=== PATIENT | female | born 1950 | race Caucasian/White ===

== ENCOUNTER 2023-12-14 10:28 | Outpatient (CLI) | payer MEDICARE, SELFPAY ==
--- NOTE | ~2023-12-14 | US_ITS ---
EXAMINATION: US carotid duplex BI DATE: 12/14/2023 11:19 INDICATION: Carotid bruit TECHNIQUE: Grayscale, color Doppler, and pulsed Doppler images of the cervical carotid arteries were obtained. The degree of vessel stenosis is placed in one of the following categories: normal, <50%, 5 0-69%, >=70% but less than near-occlusion, near-occlusion, or total occlusion. Note that percent sten osis relative to normal distal artery lumen diameter is indirectly measured from velocity measurement s as described by Iglesia, et al. Radiology 2003; 229:340-346. Notes: Normal: Peak systolic velocity <125 centimeters/sec and no plaque <50%. Peak systolic velocity <125 ( EDV <40; ICA/CCA PSV ratio <2.0; used these factors only a tandem lesions or low cardiac output or co ntralateral disease) 50-69 %: PSV 125-230 (EDV 40-100; ratio 2-4) >= 70% but less than near occlusion: PSV greater than 230 (EDV > 100; ratio> 4.0) Near Occlusion: PSV that is variable; markedly narrowed lumen Occlusion: Absent flow on color/spectral Doppler and no lumen on mendoza scale. COMPARISON: None. FINDINGS: RIGHT: The right common carotid artery (CCA) peak systolic velocity (PSV) is 116 cm/s. The right internal ca rotid artery (ICA) PSV is 108 cm/s. The right ICA end-diastolic velocity (EDV) is 22 cm/s. The right ICA/CCA PSV ratio is 0.9. The external carotid artery (ECA) PSV is 100 cm/s. There is antegrade flow in the right vertebral artery. LEFT: The left CCA PSV is 79 cm/s. The left ICA PSV is 89 cm/s. The left ICA EDV is 21 cm/s. The left ICA/C CA PSV ratio is 1.2. The ECA PSV is 57 cm/s. There is antegrade flow in the left vertebral artery. IMPRESSION: 1. Less than 50% stenosis in the right internal carotid artery by sonographic criteria. 2. Less than 50% stenosis in the left internal carotid artery by sonographic criteria. Reviewed, dictated and finalized at location B. IMPRESSION: 1. Less than 50% stenosis in the right internal carotid artery by sonographic jeremie knight. 2. Less than 50% stenosis in the left internal carotid artery by sonographic evaristo freeman.
== END 2023-12-14 10:29 | disposition home or self-care (01) ==
PROVIDERS: Visit Provider Internal Medicine Cardiovascular Disease
DX: I65.23 Occlusion and stenosis of bilateral carotid arteries (principal); R09.89 Other specified symptoms and signs involving the circulatory and respiratory systems
CPT/HCPCS: 93880

== ENCOUNTER 2024-09-04 00:29 | Day surgery (SDC) | payer MEDICARE, SELFPAY ==
[2024-09-03 10:04] VITALS: BMI 36.6
[2024-09-04] VITALS (7 sets, daily range): BP systolic 144–217; BP diastolic 53–107; PULSE 60–74; RESP 14–20; TEMP 36.2; O2SAT 96–100; BMI 33.5
--- OUTSIDE RECORDS SUMMARY | 2024-09-04 00:31 | XMS_ITS | Encounter Summary ---
Author Organization [facility] Address [address] [address] Care Team Providers Care Strategy Consultant Name Role Phone Rebecca Johnson MD Primary Care Provider + [phone] Rebecca Johnson MD Unavailable [phone] Ramona Davis MA Unavailable Yun Arenas NP Primary Care Provider [phone] Johnny Michelle MD Unavailable Jaylen Knott MD Unavailable [phone] Dori Davis MD Unavailable [phone] Jamison Sheldon MD Unavailable [phone] Encounter Details Date Type Department Care Team (Late st Contact Info) Description 08/02/2016 Orders Only [facility] Provider, MD Catrachita [address] [place] [id number] Social History Tobacco Use Types Packs/Day Years Used Date Smoking Tobacco: Never Alcohol Use Standard Drinks/Week Comments No 0 (1 standard drink = 0.6 oz pur e alcohol) Comments Unknown Sex and Gender Information Value Date Recorded Sex Assigned at Not on file 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 us Historical Provider [facility] Final Result documented in this encounter Visit Diagnoses Not on filedocumented in this encounter Additional Health Concerns Infection Onset Date Last Indicated Resolved Time COVID: Suspected 10/01/2023 10/01/2023 10/01/2023 6:20 PM CDT documented as of this encounter Care Teams Strategy Consultant Relationship Specialty Start Date End Date Rebecca Johnson MD [address] [phone] PCP - General 07/08/16 07/24/22 Rebecca Johnson MD [address] [phone] PCP - Humana Attributed PCP 09/09/15 07/24/22 Yun Arenas NP [address] [place] [address] [address] [place] [id number] PCP - General Family Medicine 07/25/22 Ramona Davis MA [address] [place] [address] [address] [place] [address] [facility] [employer] 10/19/20 10/28/20 Johnny Michelle MD [address] [place] [address] Referring Physician Family Practice 07/25/22 Jaylen Knott MD [address] [place] [address] Consulting Physician Cardiology 07/25/22 07/25/23 Dori Davis MD [address] [address] Consulting Physician Obstetrics and Gynecology 07/26/23 Jamison Sheldon MD [address] [address] Consulting Physician Cardiovascular Disease 07/26/23 documented as of this encounter
--- OUTSIDE RECORDS SUMMARY | 2024-09-04 00:31 | XMS_ITS | Continuity of Care Document ---
Author Organization [facility] Address [address] [facility], [place], operated by [facility] [address] [place] [address] Phone Care Team Providers Care Microbiology Lab Manager Name Role Phone Ching Valdez OD Unavailable Unavailable Allergies, Adverse Reactions, Alerts Substance Reaction Status Criticality No Known Allergies Active No Inform ation Medications Medication Instructions Dosage Effective Dates (start - stop) Status Comments Vitamin D3 2,000 unit tablet take 1 by oral route every day 1 - Active Calcium 600 600 mg calcium (1,500 mg) tablet take 1 capsule by oral route 2 times every day 1 capsule - Active olmesartan 40 mg tablet take 1 tablet by oral route every day 40 MG - Active hydralazine 10 mg tablet take 1 tablet b y oral route 2 times every day with food 10 MG - Active aspirin 81 mg tablet,delayed release take 1 tablet by oral route every day 81 MG - Active carvedilol 12.5 mg tablet take 1 tablet by oral route 2 times every day with food 12.5 MG - Active simvastatin 40 mg tablet take 1 tablet b y oral route every day in the evening 40 MG - Active hydroxychloroquine 200 mg tablet take 1 tablet by oral route 2 times every day 200 MG - Active Procedures Procedure Date Corneal Pachymetry Visual Field Examination(s) No Charge Optomap Fundus Photos 023 SCODI, Retina Eye Exam & Treatment SCODI, Retina Visual Field Examination(s) No Charge Optomap Fundus Photos Eye Exam & Treatment Fundus Photography W/ Report Corneal Pachymetry Visual Field Examination(s) Eye Exam & Treatment No Charge Optomap Fundus Photos Visual Field Examination(s) Corneal Pachymetry Eye Exam & Treatment SCODI, Retina Corneal Pachymetry SCODI, Retina Visual Field Examination(s) Eye Exam & Treatment Visual Field Examination(s) SCODI, Retina Corneal Pachymetry Office/outpatient Visit, Est No Charge Refraction Revise Eyelashes Post-op Follow-up Visit No Charge Pachymetry Post-op Follow-up Visit Remove Cataract, Insert Lens IOLMaster-Professional No Charge Refraction Visual Field Examination(s) SCODI, Retina IOLMaster-Technical Office/outpatient Visit, New Corneal Pachymetry Advance Directives Directive Yes / No Effective Date File Name No Information Encounters Encounter Description Practice Location Reason(s) For Visit Diagnoses Date Provider Providers Copied on Encounter [facility], [address] [facility] [address], [place], [place], [id number], tel:[phone] SEC [facility] Professional Complete Exam (chief complaint) Drusen (degenerative) of macula, bilateralEndot helial corneal dystrophy, bilateralHigh risk medication useOther secondary cataract, bilateralPrese nce of intraocular lens 3 Courtney OD Ching. [id number] [place] [address] [address], [place], [place], [id number], . tel:[phone] Johnny Michelle MD.Referri Provider: Milo Man OD, [facility] [address] [place], [address]. tel:[phone] [facility], [address], [place], [place], [address], [place] tel:[phone] SEC Pilo MA Professional Plaquenil exam (chief complaint) High risk medication useEndothelial corneal dystrophy, bilateralOther secondary cataract, bilateralPrese nce of intraocular lensDrusen (degenerative) of macula, right eyeMacular scar of left eye Chris Garcia. [address] [facility], [place] [address], [place]. tel:[phone] Specialist : Johnny Michelle MD, [address] [place] [address], [address]. tel:[phone] er Provider: Johnny Michelle MD, [address] [place] [address], [address]. tel:[phone] erring Provider: Milo Man OD, [facility] [address] [place], [address]. tel:[phone] [facility], [address], [place], [place], [address], [place] tel:[phone] SEC Pilo MA Professional Complete Exam (chief complaint) High risk medication usePresence of pseudophakiaDr usen (degenerative) of macula, right eyeOther secondary cataract, bilateralEndot helial corneal dystrophy, bilateralMacul ar scar of left eye 1 Chrsi Garcia. [address] [facility], [place], [place], [address], [place]. tel:[phone] Specialist : Johnny Michelle MD, [address] [place] [address], [address]. tel:[phone] erring Provider: Milo Man OD, [facility] [address] [place], [address]. tel:[phone] [facility], [address], [place], [place], [address], [place] tel:[phone] SEC Pilo MA Professional Complete Exam (chief complaint) High risk medication usePunctate keratitis, bilateralEndot helial corneal dystrophyPrese nce of intraocular lensOther secondary cataract, bilateralDruse n (degenerative) of macula, right eyeMacular scar of left eye 0 Chris Garcia. [address] [facility] [address], [place], [place], [address], [place]. tel:[phone] Specialist : Johnny Michelle MD, [address] [place] [address], [address]. tel:[phone] er Provider: Jo Major MD, [address] [place] [address] [place] [address], [address]. tel:[phone] erring Provider: Milo Man OD, [facility] [address] [place], [address]. tel:[phone] [facility], [address] [place] [address] [address], [place], [place], [address], [place] [phone] SEC Franklin MA Professional Complete Exam (chief complaint) Presence of pseudophakiaHi gh risk medication useOther secondary cataract, bilateralEndot helial corneal dystrophyPunct ate keratitis, bilateralDruse n (degenerative) of macula, bilateral Jun- 9 Chris Garcia. [address] [facility], [place], [place], [address], [place]. tel:[phone] Referring Provider: Milo Man OD, [facility] [address] [place], [address]. tel:[phone] [facility], [address], [place], [place], [address], [place] tel:[phone] SEC Verna Olsen No Information 9 Chris Garcia. [address] [facility], [address], [place], [place], [address], [place]. tel:[phone] Office/outpa tient Visit, Est [facility], [address], [place], [place], [address], tel:[phone] SEC Pilo CARROLL Professional Complete Exam (chief complaint) High risk medication useMacular hole, leftDrusen (degenerative) of macula, right eyeLattice degeneration of peripheral retina, leftRheumatoid arthritis involving multiple sites, unspecified rheumatoid factor presencePresen ce of pseudophakiaCo rnea guttataOther secondary cataract, right eye Jun- 6 8 Chris Garcia. [address] [employer], [address], [place], [place], [address], [place]. tel:[phone] Referring Provider: Milo Man OD, [facility] [address] [place], [address]. tel:[phone] [facility], [address] [place] [address] [address], [place], [place], [address], [place] tel:[phone] SEC Pilo CARROLL Professional 1 month PCIOL PO/Yag Eval (chief complaint) No Information 7 Chris Garcia. [address] [employer], [place], [address], [place]. tel:[phone] Referring Provider: Milo Man OD, [facility] [address] [place] [place], [address]. tel:[phone] [facility], [address] [place] [address] [address], [place], [place], [address], [place] tel:[phone] SEC Pilo CARROLL Professional 1 week PO PCIOL (chief complaint) No Information 7 Chris Garcia. [address] [employer], [place], [place], [address], [place]. tel:[phone] Referring Provider: Milo Man OD, [facility] [address] [place], [address]. tel:[phone] [facility], [address] [place] [address] [address], [place], [place], [address], [place] tel:[phone] SEC Pilo CARROLL Professional 1 day CE PO (chief complaint) No Information 7 Renata Travis. [address] [place] [address] [address], [address], [place], [place], [address], [place]. tel:[phone] Referring Provider: Milo Man OD, [facility] [address] [place], [address]. tel:[phone] [facility], [address] [place] [address] [address], [place], [place], [address], [place] [phone] [facility] No Information 7 Chris Garcia. [address] [facility], [place], [address], [place]. tel:[phone] Referring Provider: Milo Man OD, [facility] [address] [place], [address]. tel:[phone] [facility], [address] [place] [address] [address], [place], [place], [address], [place] tel:[phone] SEC Verna Olsen No Information 0 7 Chris Garcia. [address] [employer], [place], [address], [place]. tel:[phone] Referring Provider: Milo Man OD, [facility] [address] [place], [address]. tel:[phone] Office/outpa tient Visit, [facility], [address] [place] [address] [address], [place], [place], [address], [place] tel:[phone] SEC Pilo CARROLL Professional Complete Exam (chief complaint) No Information 7 Chris Garcia. [address], [place], [address], [place]. tel:[phone] Specialist : Jo Major MD, [address] [facility] [address], [place], [address]. tel:[phone] erring Provider: Jo Major MD, [address] [facility] [address], [place], [address]. tel:[phone] [facility], [address] [facility] [address], [place], [place], [address], [place] tel:[phone] SEC Pilo CARROLL Professional No Information 7 Perez Jose. [address] [facility], [address], [place], [place], [address], [place]. tel:[phone] Family History Family Member Type Diagnosis Age At Onset Paternal grandmother Problem (finding) diabetes mellit type 2 Payers Payer name Insurance type Covered alliance party ID Authoriza tiwarren(s) [employer] Medicare CI [id number] [employer] [place] [id number] [place] [id number] Social History Type Description Quantity Date Captured Comments Alcohol Use Details No Caffeine Use Details Tobacco Use Status Current non-smoker Smoking Status Never smoker Non-Smoking Tobacco Use Details : No Details Available : No Details Available Sex Female Chief Complaint And Reason For Visit From encounter dated '12/06/2022 13:00'. Complete Exam (chief complaint). Description: The 72 year old patient presents for evaluation of Complete Exam in the right eye and left eye. Pt states that they got new glasses after last visit at [facility] and vision seems good with new glasses. Pt is still taking Plaquenil as directed. Pt also taking artificial tears BID OU. Reason For Referral Reason For Referral No Information Plan Of Treatment Date Type Action Status Patient Education Learning About Retinal Drusen completed Patient Education Learning About YAG Lase r Capsulotomy completed Patient Education Learning About Retinal Drusen completed Patient Education Learning About Retinal Drusen completed History Of Present Illness Encounter Date Complaint History Of Prese nt Illness Complete Exam The 72 year old patient presents for evaluation of Complete Exam in the right eye and left eye. Pt states that they got new glasses after last visit at [facility] and vision seems good with new glasses. Pt is still taking Plaquenil as directed. Pt also taking artificial tears BID OU. Plaquenil exam The 71 year old patient presents for evaluation of Plaquenil exam in the right eye and left eye. Hx of High Risk meds, PCIOL OU, Drusen OD, Fuch's OU, Mac hole s/p Vitrectomy OS, and DRY EYES. Patient denies any changes with eyes. VA seems stable. Patient on Plaquenil therapy x 4 years, takes 2 pills a day, and Dr. Michelle treats her RA. Complete Exam The 70 year old female presents for evaluation of Complete Exam in the right eye and left eye. Hx of High Risk Medication, PCIOL OU, Drusen OD, Fuch's OU, Mac Hole s/p Vitrectomy OS. Patient denies any changes with eyes. Patient likes to have bigger print when doing close work. Patient on Plaquenil Therapy x 3 years for RA, takes 2 pills a day, and Dr Michelle treats her RA. Unable to do OCT due to RI here Complete Exam The 69 year old female presents for evaluation of Complete Exam in the right eye and left eye. Hx PCIOL OU, PCO OU, Macular hole OS w. vitrectomy OS, Fuch's OU, Plaquenil use for RA. RA followed by Dr. Michelle. Pt reports stable vision in current spec Rx. Pt reports taking ATs BID OU. Complete Exam The 67 year old female presents for a complete Plaquenil exam ou. Patient takes Plaquenil bid po for RA x 2-3 year. Patient currently does not have a [employer] Of [employer]. Patient is pseudo ou and monitoring Fuchs ou. Patient has hx of mac hole repair OS. Patient denies any changes in vision ou. Complete Exam The 66 year old female presents for evaluation of Complete Exam in the right eye and left eye. Hx of PC IOL OU, Fuchs OU, PCF OS, and Mac hole s/p Vitrectomy OS. Pt reports she takes Plaquenil 200 mg BID PO for RA. 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 Pt denies any changes in VA, OU, since last appt. Pt denies any pain, irritation or discomfort today, OU. 1 month PCIOL PO/Yag Eval The 65 year old female presents for 1 month PCIOL PO OD/Yag Eval OS. Hx PCIOL OU, Fuchs, Mac Hole repain with Victrectomy OS, Opacified Cap OS, Plaquenil Theraphy PO. PT states her vision is doing fine for didtance but her near vision is declining. Pt state she has trouble reading small print and doing close work and she is bothered by glare on bright days and from other cars. PT states she is not having any pain/discomfort. Pt not using any eye drops. 1 week PO PCIOL The 65 year old female presents for 1 week PO PCIOL in the right eye. Hx PCIOL OU, Fuch's OU, PCO OS, Repaired Mac hole OS. Pt using Pred, Diclo and Vig TID OD. Pt states OD seems to be doing ok. States she is having trouble seeing up close so she went to get some readers. 1 day CE PO The 65 year old female presents for 1 day CE PO in the right eye. Hx of PCIOL OU, PCO OS, Macular Hole w/ Vitrectomy OS, Fuch's OU, and Plaquenil Therapy PO. Pt currently using Vigamox and Prednisolone QID OD and Diclofenac TID OD. PO instructions were given, explained and understood by pt. Pt reports having no pain, irritation, or discomfort OU last night. Pt reports this morning she had some achiness OD, but it has went away while waiting for appt. Complete Exam The 65 year old female presents for Complete Exam in the right eye and left eye. Hx of PC IOL OS and Mac Hole w/ Vitrectomy OS. Pt currently taking Plaquinel 200 mg BID, started JAN 2016, for CREST Syndrome. Pt states she feels like something is in her right eye sometimes, it comes and goes. Pt states her Glasses are over a yr old and would like a new pair of glasses, VA is not as sharp as it used to be. Pt gets glare from head lights, but has had that since the Mac hole repair. Pt uses no gtts at this time. Functional Status Date Functional Assessmen t No Information Instructions Date Instruction Additional Infor jenniffer Impression/Plan Impression/Plan Impression/Plan Impression/Plan Impression/Plan Impression/Plan Surgery not indicated now. 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 - Risk of Yag Capsulotomy likely outweighs the benefits at this time- If PCO become very visually significant in the future we could consider YAG at that time if it becomes absolutely necesarry- Patient will return to Milo Man, OD for updated glasses and routine eye exams.- Patient will return here in 2017 for annual Plaquenil exam or sooner with problems. Follow up - Return to clinic as scheduled Impression/Plan - On e week PO s/p Phaco with IOL OD:- IOL in good position; healing well.- Patient advised they no longer need to wear the shield over the eye at bedtime.- Medication instillation and post op instructions reviewed.- Patient will return in 3 weeks or sooner with problems.Dilate OU + Yag Eval OS next visit Impression/Plan - 1 day post op Phaco with PCIOL OD. Discussed post op course with pt, post op instruction reviewed and understood. Pt to return to clinic as scheduled for post op follow up. Impression/Plan - Pl aquenil Therapy:- Discussed plaquenil use and the risks in detail with patient.- No Toxicity seen on today's exam.- Patient is safe to continue medication.- Patient will monitor vision and contact us with any decrease in vision.- Letter sent to Jo Major MD regarding regarding today's exam.Posterior Capsular Opacification OS:- PCO accounts for OS visual complaints.- Yag Laser Capsulotomy is recommended to improve the vision.- Schedule Yag Laser Capsulotomy OS.Macular Hole OS:- There is a small scar at the site of the previous macular hole.- Observation is recommended.Fuchs' Corneal Dystrophy OU:- Diagnosis discussed with patient.- Corneal pachymetry reveals no edema OU.- No treatment is recommended at this time.Cataract OU:- Cataract accounts for patient's OD visual complaints.- Discussed all R/B/A pertaining to cataract surgery.- The procedure and recovery from cataract extraction were discussed.- Recommend phacoemulsification with intraocular lens implant.- Lifestyle lens options discussed.- The possibility that patient may still need to wear glasses to correct astigmatism and/or for reading vision following surgery reviewed and understood by patient.- Discussed the possibility of prolonged corneal edema due to concurrent Fuch's corneal dystrophy- Patient elects to proceed with CE OD with the standard IOL set for distance.* Possible shugarcaine and malyugin ring due to poor pupillary dilation.*Previous retinal surgery on OS only. No hx of retina surgery OD Follow up - Schedule OD CE with the standard IOL set for distance Assessments Type Assessment Date assessment Drusen (degenerative) of macula, bilateral assessment Endothelial corneal dystrophy, b ilateral assessment High risk medication use 2022 assessment Other secondary cataract, bilate ral assessment Presence of intraocular lens Nov Patient Care Teams Name Effective Dates (start - stop) Status Members No Information
--- OUTSIDE RECORDS SUMMARY | 2024-09-04 00:31 | XMS_ITS | Encounter Summary ---
Author Organization [facility] Healthcare Address [address] [place] [address] Care Team Providers Care Christian Counselor Name Role Phone Yun Arenas NP Primary Care Provider Johnny Michelle MD Unavailable Dori Davis MD Unavailable [phone] Jamison Sheldon MD Unavailable Encounter Details Date Type Department Care Team (Late st Contact Info) Description 08/02/2024 Results Follow-Up [facility] Primary Care at [address] [place] [address] Yun Arenas NP [address] [place] [address] [address] [place] [address] Vitamin B12, Vitamin D 25 hydroxy, Lipid panel, Additional followed-up results: 6 Social History Tobacco Use Types Packs/Day Years Used Date Smoking Tobacco: Never Smokeless Tobacco: Never Alcohol Use Standard Drinks/Week Comments No 0 (1 standard drink = 0.6 oz pur e alcohol) Humiliation, Afraid, Rape, and Kick questionnair e Answer Date Recorded Within the last year, have y ou been afraid of your partner or ex-partner? No 01/04/2024 Within the last year, have y ou been humiliated or emotionally abused in other ways by your partner or ex-partner? No Within the last year, have y ou been kicked, hit, slapped, or otherwise physically hurt by your partner or ex-partner? No 01/04/2024 Within the last year, have y ou been raped or forced to have any kind of sexual activity by your partner or ex-partner? No 01/04/2024 AUDIT-C Answer Date Recorded Q1: How often do you have a drink containing alcohol? Never 01/31/2024 Q2: How many drinks containi ng alcohol do you have on a typical day when you are drinking? Patient does not drink Q3: How often do you have si x or more drinks on one occasion? Never 01/31/2024 PHQ-2 Answer Date Recorded PHQ-2 Total Score (If total score is 3 or more points, staff should administer the PHQ-9) 0 01/31/2024 Comments No Sex and Gender Information Value Date Recorded Sex Assigned at Not on file Legal Sex Female 11:24 PM [facility] Gender Identity Female 06/26/2020 10:20 AM CDT Sexual Orientation Not on file documented as of this encounter Plan of Treatment Not on file documented as of this encounter Visit Diagnoses Not on filedocumented in this encounter Care Teams Christian Counselor Relationship Specialty Start Date End Date Yun Arenas NP [address] [facility] [address] [place] [address] PCP - General Family Medicine 07/25/22 Johnny Michelle MD [address] [place] [address] Referring Physician Family Practice 07/25/22 Dori Davis MD [address] [facility] [address] [place] [address] Consulting Physician Obstetrics and Gynecology 07/26/23 Jamison Sheldon MD [address] [facility] [address] [place] [address] Consulting Physician Cardiovascular Disease 07/26/23 documented as of this encounter
--- OUTSIDE RECORDS SUMMARY | 2024-09-04 00:31 | XMS_ITS | Referral Summary ---
Author Organization [facility] Address [address] [place] [phone] Care Team Providers Care Senior It Specialist Name Role Phone Yun Arenas NP Primary Care Provider [phone] Johnny Michelle MD Unavailable Dori Davis MD Unavailable [phone] Jamison Sheldon MD Unavailable Encounters Date Type Department Care Team Description 08/26/2024 8:00 AM CDT Ancillary Procedure [facility] Cardiology [address] [place] [address] [place] [phone] Cardiac pacemaker in situ; Paroxysmal atrial fibrillation (HCC); SSS (sick sinus syndrome) (HCC) 08/26/2024 Telephone [facility] Cardiology [address] [place] [phone] Jamison Sheldon MD 08/22/2024 Telephone [facility] Cardiology [address] [place] [phone] Jamison Sheldon MD pacemaker question 08/20/2024 10:15 AM CDT Ancillary Procedure [facility] Cardiology [address] [place] [phone] Cardiac pacemaker in situ; Paroxysmal atrial fibrillation (HCC); SSS (sick sinus syndrome) (HCC) 08/16/2024 Results Follow-Up [facility] Primary Care at [address] [phone] Yun Arenas NP Dexa Axial Skeleton Bone Density 1 or 2 Site 08/13/2024 12:57 PM CDT - 08/13/2024 11:59 PM CDT Hospital Encounter [facility] [address] [place] [phone] Osteoporosis screening; Postmenopausal Discharge Disposition: Discharge to home or self care 08/07/2024 9:30 AM CDT Office Visit [facility] Primary Care at [address] [phone] Yun Arenas NP Annual physical exam (Primary Dx); Hypertension, essential; Mixed hyperlipidemia; Vitamin D deficiency; Vitamin B12 deficiency; Subclinical hypothyroidism; Cardiac pacemaker in situ; Primary osteoarthritis involving multiple joints; Paroxysmal atrial fibrillation (HCC); CREST (calcinosis, Raynaud's phenomenon, esophageal dysfunction, sclerodactyly, telangiectasia) (HCC); Coronary artery disease involving [place] coronary artery of [place] heart without angina pectoris; Psoriasis of scalp; Abrasion, leg w/o infection; Class 2 severe obesity due to excess calories with serious comorbidity and body mass index (BMI) of 37.0 to 37.9 in adult (HCC) 08/02/2024 Results Follow-Up [facility] Primary Care at [address] [phone] Yun Arenas NP Vitamin B12, Vitamin D 25 hydroxy, Lipid panel, Additional followed-up results: 6 08/01/2024 ACO Clinical Pharmacist [facility] Accountable Care Organization [address] [place] [id number] Angeline Bob RPh 07/31/2024 9:05 AM CDT Lab [address] [phone] Elevated vitamin B12 level; Vitamin D deficiency; Mixed hyperlipidemia; Subclinical hypothyroidism; Hypertension, essential 07/16/2024 8:15 AM CDT Ancillary Procedure [facility] Cardiology [facility] [address] [phone] Symptomatic bradycardia (Primary Dx); Paroxysmal atrial fibrillation (HCC); SSS (sick sinus syndrome) ([facility]); Cardiac pacemaker in situ 07/09/2024 1:30 PM CDT Office Visit [facility] Cardiology [address] [place] [address] Jamison Sheldon MD Coronary artery disease involving [place] coronary artery of [place] heart without angina pectoris (Primary Dx); Hypertension, essential; Paroxysmal atrial fibrillation ([facility]); Cardiac pacemaker in situ; Mixed hyperlipidemia; Class 2 severe obesity due to excess calories with serious comorbidity and body mass index (BMI) of 36.0 to 36.9 in adult ([facility]) 06/25/2024 11:35 AM CDT [address] [phone] from Last 3 Months Allergies No known active allergies Medications cholecalciferol (VITAMIN D3) 2,000 unit capsule 1 daily 0 0 01/21/20 16 Active calcium carbonate-vitamin D3 1,500 mg (600mg elemental) -800 unit per tablet Take 1 tablet by mouth daily Active hydroxychloroquine (PLAQUENIL) 200 mg tablet Take 2 tablets (400 mg total) by mouth daily 180 tablet 07/03/19 20 Active aspirin (Adult Low Dose Aspirin) 81 mg enteric coated tablet Take 1 tablet (81 mg total) by mouth daily 03/11/20 21 Active PPUIKZMC-DCESET-EV CORBIC ACID ORAL Take by mouth Active vit C,A-Ra-uiqgj-lutei n-zeaxan (PreserVision AREDS-2) 250-90-40-1 mg tablet,chewable Take 1 tablet by mouth 2 (two) times a day 11/13/19 24 Active simvastatin (ZOCOR) 40 mg tabletIndications: Mixed hyperlipidemia TAKE 1 TABLET(40 MG) BY MOUTH EVERY NIGHT 90 tablet 3 01/29/20 24 Active triamcinolone (KENALOG) 0.1 % creamIndications:P soriasis of scalp Apply topically 2 (two) times a day Apply to rash on scalp and external ear for up to 2 weeks at a time 80 g 1 08/08/19 25 Active carvediloL (COREG) 12.5 mg tabletIndications: Hypertension, essential Take 1 tablet (12.5 mg total) by mouth 2 (two) times a day with meals 180 tablet 3 08/08/19 25 Active olmesartan (BENICAR) 40 mg tabletIndications: Hypertension, essential Take 1 tablet (40 mg total) by mouth daily 90 tablet 3 08/08/19 25 Active carvediloL (COREG) 12.5 mg tabletIndications: Hypertension, essential TAKE 1 TABLET(12.5 MG) BY MOUTH TWICE DAILY 180 tablet 3 08/25/19 24 025 Discontin ued(Reord er) triamcinolone (KENALOG) 0.1 % creamIndications:P soriasis of scalp Apply topically 2 (two) times a day Apply to rash on scalp and external ear 80 g 10/01/19 24 025 Discontin ued(Reord er) olmesartan (BENICAR) 40 mg tabletIndications: Hypertension, essential TAKE 1 TABLET(40 MG) BY MOUTH DAILY 90 tablet 3 10/04/19 24 025 Discontin ued(Reord er) Active Problems Problem Noted Date Diagnosed Date Low bone mass 08/16/2024 Psoriasis of scalp 08/07/2024 Assessment & Plan (08/07/2024 10:12 AM CDT): -chronic, stable -Discussed/ordered labs -continue on triamcinolone 0.1% cream twice daily as needed for up to 2 weeks at a time Bilateral carotid bruits 11/22/2023 Subclinical hypothyroidism 08/02/2022 Assessment & Plan (08/07/2024 10:11 AM CDT): -chronic, stable, but not at goal -Discussed/ordered labs -no medication is needed at this time since TSH is under 10 and T4 is normal and patient is not experiencing any symptoms. Assessment & Plan (01/31/2024 7:55 AM CDT): -chronic, improving, but not at goal -Discussed/ordered labs -no medication is needed at this time since TSH is under 10 and T4 is normal and patient is not experiencing any symptoms. Assessment & Plan (07/26/2023 2:12 PM CDT): -chronic, worsening -Discussed/ordered labs -no medication is needed at this time since TSH is under 10 and T4 is normal and patient is not experiencing any symptoms. Vitamin B12 deficiency 07/25/2022 Assessment & Plan (08/07/2024 10:11 AM CDT): -chronic, stable -Discussed/ordered labs -Patient is no longer taking a supplement for this due to previously elevated levels Assessment & Plan (07/26/2023 10:39 AM CDT): -chronic, stable -Discussed/ordered labs -continue on vitamin B12 1000 mcg 3 days per week Assessment & Plan (07/25/2022 11:48 AM CDT): HPI: Condition is unknown, no data to review at this time to make an evaluation A&P: Discussed/ordered labs, encouraged healthy, low carbohydrate lifestyle and at least 150min/week of exercise, continue on vitamin B12 1000 mcg daily. Patient has lab work to complete ordered by Dr. Michelle rheumatology. Vitamin D deficiency 07/25/2022 Assessment & Plan (08/07/2024 9:49 AM CDT): -chronic, stable -Discussed/ordered labs -continue on vitamin D3 2,000 units daily Assessment & Plan (01/31/2024 7:55 AM CDT): -chronic, stable -Discussed/ordered labs -continue on vitamin D3 2000 units daily Assessment & Plan (07/26/2023 7:50 AM CDT): -chronic, stable -Discussed/ordered labs -continue on vitamin D3 2000 units daily Assessment & Plan (07/25/2022 11:47 AM CDT): HPI: Condition is unknown, no data to review at this time to make an evaluation A&P: Discussed/ordered labs, encouraged healthy, low carbohydrate lifestyle and at least 150min/week of exercise, continue on vitamin D3 2,000 units daily. Patient has lab work to complete ordered by Dr. Michelle rheumatology. Class 2 severe obesity due t o excess calories with serious comorbidity and body mass index (BMI) of 37.0 to 37.9 in adult 10/19/2021 Assessment & Plan (08/07/2024 7:56 AM CDT): -chronic, not at/near goal goal BMI <30 Healthy, high-protein, lower carbohydrate, lower fat lifestyle and exercise for 150min/week recommended Recommend tracking everything you put in your mouth on an chyna like [employer] Measurements: A fist or cupped hand = 1 cup 1 cup = 1 -2 servings of fruit juice 1 oz. of cold cereal 2 oz. of cooked cereal, rice or pasta 8 oz. of milk or yogurt A thumb = 1 oz. of cheese Consuming low-fat cheese helps you meet the required servings from the milk, yogurt and cheese group. 1 oz. of low-fat cheese counts as 8 oz. of milk or yogurt. Handful = 1-2 oz. of snack food Thumb tip = 1 teaspoon Keep high-fat foods, such as peanut butter and mayonnaise, at a minimum. One teaspoon is equal to the end of your thumb, from the knuckle up. Three teaspoons equals 1 tablespoon. Palm = 3 oz. of meat Choose lean poultry, fish, shellfish and beef. One palm size portion equals 3 oz. for an adult and 1 -2 oz. for a child under 5. 1 tennis ball or a fist= 1/2 cup of fruit and vegetables Healthy diets include a variety of colorful fruits and vegetables every day. The secret to serving size is in your hand. Snacking can add up. Because hand sizes vary, compare your fist size to an actual measuring cup. Assessment & Plan (01/31/2024 7:56 AM CDT): -chronic, not at/near goal goal BMI <30 Healthy, high-protein, lower carbohydrate, lower fat lifestyle and exercise for 150min/week recommended Recommend tracking everything you put in your mouth on an chyna like [employer] Measurements: A fist or cupped hand = 1 cup 1 cup = 1 -2 servings of fruit juice 1 oz. of cold cereal 2 oz. of cooked cereal, rice or pasta 8 oz. of milk or yogurt A thumb = 1 oz. of cheese Consuming low-fat cheese helps you meet the required servings from the milk, yogurt and cheese group. 1 oz. of low-fat cheese counts as 8 oz. of milk or yogurt. Handful = 1-2 oz. of snack food Thumb tip = 1 teaspoon Keep high-fat foods, such as peanut butter and mayonnaise, at a minimum. One teaspoon is equal to the end of your thumb, from the knuckle up. Three teaspoons equals 1 tablespoon. Palm = 3 oz. of meat Choose lean poultry, fish, shellfish and beef. One palm size portion equals 3 oz. for an adult and 1 -2 oz. for a child under 5. 1 tennis ball or a fist= 1/2 cup of fruit and vegetables Healthy diets include a variety of colorful fruits and vegetables every day. The secret to serving size is in your hand. Snacking can add up. Because hand sizes vary, compare your fist size to an actual measuring cup. Assessment & Plan (07/26/2023 7:52 AM CDT): -chronic, not at/near goal goal BMI <30 Healthy, high-protein, lower carbohydrate, lower fat lifestyle and exercise for 150min/week recommended Recommend tracking everything you put in your mouth on an chyna like [employer] Hand Measurements: A fist or cupped hand = 1 cup 1 cup = 1 -2 servings of fruit juice 1 oz. of cold cereal 2 oz. of cooked cereal, rice or pasta 8 oz. of milk or yogurt A thumb = 1 oz. of cheese Consuming low-fat cheese helps you meet the required servings from the milk, yogurt and cheese group. 1 oz. of low-fat cheese counts as 8 oz. of milk or yogurt. Handful = 1-2 oz. of snack food Thumb tip = 1 teaspoon Keep high-fat foods, such as peanut butter and mayonnaise, at a minimum. One teaspoon is equal to the end of your thumb, from the knuckle up. Three teaspoons equals 1 tablespoon. Palm = 3 oz. of meat Choose lean poultry, fish, shellfish and beef. One palm size portion equals 3 oz. for an adult and 1 -2 oz. for a child under 5. 1 tennis ball or a fist= 1/2 cup of fruit and vegetables Healthy diets include a variety of colorful fruits and vegetables every day. The secret to serving size is in your hand. Snacking can add up. Because hand sizes vary, compare your fist size to an actual measuring cup. Assessment & Plan (07/25/2022 11:49 AM CDT): HPI: Condition is not at/near goal goal BMI <30 A&P: Healthy, high-protein, lower carbohydrate, lower fat lifestyle and exercise for 150min/week recommended Recommend tracking everything you put in your mouth on an chyna like [employer] Hand Measurements: A fist or cupped hand = 1 cup 1 cup = 1 -2 servings of fruit juice 1 oz. of cold cereal 2 oz. of cooked cereal, rice or pasta 8 oz. of milk or yogurt A thumb = 1 oz. of cheese Consuming low-fat cheese helps you meet the required servings from the milk, yogurt and cheese group. 1 oz. of low-fat cheese counts as 8 oz. of milk or yogurt. Handful = 1-2 oz. of snack food Thumb tip = 1 teaspoon Keep high-fat foods, such as peanut butter and mayonnaise, at a minimum. One teaspoon is equal to the end of your thumb, from the knuckle up. Three teaspoons equals 1 tablespoon. Palm = 3 oz. of meat Choose lean poultry, fish, shellfish and beef. One palm size portion equals 3 oz. for an adult and 1 -2 oz. for a child under 5. 1 tennis ball or a fist= 1/2 cup of fruit and vegetables Healthy diets include a variety of colorful fruits and vegetables every day. The secret to serving size is in your hand. Snacking can add up. Because hand sizes vary, compare your fist size to an actual measuring cup. History of endometrial cancer 06/05/2019 Overview (04/05/2023): Cuff is well healed Path reviewed Assessment & Plan (01/04/2024 2:54 PM CDT): No evidence of disease today Pap deferred. Assessment & Plan (04/05/2023 6:30 PM MEDIA EXECUTIVE): Cuff is well healed Path reviewed Assessment & Plan (12/29/2022 10:02 AM CDT): Doing well Will continue the plan to repeat yearly Will await the bx results, but I anticipate it will be negative. Assessment & Plan (07/25/2022 11:50 AM CDT): HPI: Condition is stable A&P: Referral sent to gynecology Assessment & Plan (03/06/2022 11:07 AM MEDIA EXECUTIVE): Follow up with oncology Assessment & Plan (11/11/2020 4:36 PM CDT): Follow up with [employer] Assessment & Plan (06/05/2019 8:52 PM MEDIA EXECUTIVE): Continue yearly oncology follow up Paroxysmal atrial fibrillation 02/12/2019 Assessment & Plan (08/07/2024 10:11 AM CDT): -chronic, stable -Patient reports she had 1 instance of atrial fibrillation. She was on Eliquis for a period of time, but did not have another occurrence of AFib so the Eliquis was stopped per Cardiology. -Discussed/ordered labs -continue on aspirin 81 mg daily, Coreg 12.5 mg 2 times daily, olmesartan 40 mg daily, simvastatin 40 mg nightly. -Continue seeing cardiology Assessment & Plan (01/31/2024 7:56 AM CDT): -chronic, stable -Patient reports she had 1 instance of atrial fibrillation. She was on Eliquis for a period of time, but did not have another occurrence of AFib so the Eliquis was stopped per Cardiology. -Discussed/ordered labs -continue on aspirin 81 mg daily, Coreg 12.5 mg 2 times daily, olmesartan 40 mg daily, simvastatin 40 mg nightly. -Continue seeing Dr. Sheldon cardiology Assessment & Plan (07/26/2023 10:31 AM CDT): -chronic, stable -Patient reports she had 1 instance of atrial fibrillation. She was on Eliquis for a period of time, but did not have another occurrence of AFib so the Eliquis was stopped per Cardiology. -Discussed/ordered labs -continue on aspirin 81 mg daily, Coreg 12.5 mg 2 times daily, olmesartan 40 mg daily, simvastatin 40 mg nightly. -Continue seeing Dr. Sheldon cardiology Assessment & Plan (07/25/2022 11:51 AM CDT): HPI: Condition is stable Patient reports she had 1 instance of atrial fibrillation. She was on Eliquis for a period of time, but did not have another occurrence of AFib so the Eliquis was stopped per Cardiology. A&P: continue on aspirin 81 mg daily, Coreg 12.5 mg 2 times daily, olmesartan 40 mg daily, simvastatin 40 mg nightly. Continue seeing Dr. Knott cardiology Assessment & Plan (03/06/2022 11:09 AM MEDIA EXECUTIVE): Follow up cardiology Assessment & Plan (11/11/2020 4:42 PM CDT): Patient to follow up with cardiology Assessment & Plan (06/05/2019 8:55 PM MEDIA EXECUTIVE): Follow up with cardiology Primary osteoarthritis involving multiple joints 02/15/2017 Assessment & Plan (08/07/2024 10:11 AM CDT): -chronic, stable -Discussed/ordered labs -continue on hydroxychloroquine 400 mg daily. -Continue seeing Dr. Michelle rheumatology Assessment & Plan (01/31/2024 10:32 AM CDT): -chronic, stable -Discussed/ordered labs -continue on hydroxychloroquine 400 mg daily. -Continue seeing Dr. Michelle rheumatology Assessment & Plan (01/23/2023 3:05 PM CDT): Chronic problem-stable Encouraged to follow-up with orthopedic surgeon Dr. Gupta as scheduled Continue with steroid injections to left knee as directed and recommended by Dr. Gupta Encouraged to follow a heart healthy diet and increase her activity to 150 minutes per week as tolerated. Assessment & Plan (07/25/2022 11:49 AM CDT): HPI: Condition is stable A&P: Discussed/ordered labs, encouraged healthy, low carbohydrate lifestyle and at least 150min/week of exercise, continue on hydroxychloroquine 400 mg daily. Continue seeing Dr. Michelle rheumatology Cardiac pacemaker in situ 02/06/2017 Overview (02/06/2017): [facility] Dual Pacemaker Dx; SSS, Symptomatic Bradycardia. DOI 10/08/2012. [employer] remote home monitor Q3 mo and office pacer checks Q1 yr. Assessment & Plan (08/07/2024 10:10 AM CDT): -chronic, stable -Discussed/ordered labs -continue on aspirin 81 mg daily, Coreg 12.5 mg 2 times daily, olmesartan 40 mg daily, simvastatin 40 mg nightly. -Continue seeing cardiology Assessment & Plan (01/31/2024 10:56 AM CDT): -chronic, stable -Discussed/ordered labs -continue on aspirin 81 mg daily, Coreg 12.5 mg 2 times daily, olmesartan 40 mg daily, simvastatin 40 mg nightly. -Continue seeing Dr. Knott cardiology Assessment & Plan (07/25/2022 11:49 AM CDT): HPI: Condition is stable A&P: Discussed/ordered labs, encouraged healthy, low carbohydrate lifestyle and at least 150min/week of exercise, continue on aspirin 81 mg daily, Coreg 12.5 mg 2 times daily, olmesartan 40 mg daily, simvastatin 40 mg nightly. Continue seeing Dr. Knott cardiology Assessment & Plan (06/05/2019 8:54 PM MEDIA EXECUTIVE): Follow up with cardiology Hx of CABG 02/06/2017 Assessment & Plan (01/31/2024 10:56 AM CDT): -chronic, stable -Discussed/ordered labs -continue on aspirin 81 mg daily, Coreg 12.5 mg 2 times daily, olmesartan 40 mg daily, simvastatin 40 mg nightly. -Continue seeing Dr. Knott cardiology Assessment & Plan (07/25/2022 11:49 AM CDT): HPI: Condition is stable A&P: Discussed/ordered labs, encouraged healthy, low carbohydrate lifestyle and at least 150min/week of exercise, continue on aspirin 81 mg daily, Coreg 12.5 mg 2 times daily, olmesartan 40 mg daily, simvastatin 40 mg nightly. Continue seeing Dr. Knott cardiology CREST (calcinosis, Raynaud's phenomenon, esophageal dysfunction, sclerodactyly, telangiectasia) 11/15/2016 Assessment & Plan (08/07/2024 7:56 AM CDT): -chronic, stable -Discussed/ordered labs -continue on hydroxychloroquine 400 mg daily. -Continue seeing Dr. Michelle rheumatology Assessment & Plan (01/31/2024 7:56 AM CDT): -chronic, stable -Discussed/ordered labs -continue on hydroxychloroquine 400 mg daily. -Continue seeing Dr. Michelle rheumatology Assessment & Plan (07/26/2023 7:51 AM CDT): -chronic, stable -Discussed/ordered labs -continue on hydroxychloroquine 400 mg daily. -Continue seeing Dr. Michelle rheumatology Assessment & Plan (07/25/2022 11:50 AM CDT): HPI: Condition is stable A&P: Discussed/ordered labs, encouraged healthy, low carbohydrate lifestyle and at least 150min/week of exercise, continue on hydroxychloroquine 400 mg daily. Continue seeing Dr. Michelle rheumatology Assessment & Plan (03/06/2022 11:04 AM MEDIA EXECUTIVE): Follow up with rheumatology Assessment & Plan (11/11/2020 4:36 PM CDT): Follow up with rheumatology Assessment & Plan (06/05/2019 8:53 PM MEDIA EXECUTIVE): Follow up with rheumatology Mixed hyperlipidemia 01/25/2016 Overview (07/15/2016): DM type 2 with diabetic dyslipidemia Assessment & Plan (08/07/2024 10:10 AM CDT): -chronic, stable -Discussed/ordered labs -continue on simvastatin 40 mg nightly. -Continue seeing cardiology Assessment & Plan (01/31/2024 7:55 AM CDT): -chronic, stable -Discussed/ordered labs -continue on simvastatin 40 mg nightly. -Continue seeing Dr. Sheldon cardiology Assessment & Plan (07/26/2023 2:12 PM CDT): -chronic, stable -Discussed/ordered labs -continue on simvastatin 40 mg nightly. -Continue seeing Dr. Sheldon cardiology Assessment & Plan (07/25/2022 11:51 AM CDT): HPI: Condition is unknown, no data to review at this time to make an evaluation A&P: Discussed/ordered labs, encouraged healthy, low carbohydrate lifestyle and at least 150min/week of exercise, continue on simvastatin 40 mg nightly. Continue seeing cardiology. Coronary artery disease invo lving [place] coronary artery of [place] heart 08/24/2013 Overview (07/13/2016): Coronary arteriosclerosis in [place] artery Assessment & Plan (08/07/2024 10:10 AM CDT): -chronic, stable -Discussed/ordered labs -continue on aspirin 81 mg daily, Coreg 12.5 mg 2 times daily, olmesartan 40 mg daily, simvastatin 40 mg nightly. -Continue seeing cardiology Assessment & Plan (01/31/2024 10:55 AM CDT): -chronic, stable -Discussed/ordered labs -continue on aspirin 81 mg daily, Coreg 12.5 mg 2 times daily, olmesartan 40 mg daily, simvastatin 40 mg nightly. -Continue seeing Dr. Sheldon cardiology Assessment & Plan (07/26/2023 2:12 PM CDT): -chronic, stable -Discussed/ordered labs -continue on aspirin 81 mg daily, Coreg 12.5 mg 2 times daily, olmesartan 40 mg daily, simvastatin 40 mg nightly. -Continue seeing Dr. Sheldon cardiology Assessment & Plan (07/25/2022 11:50 AM CDT): HPI: Condition is stable A&P: Discussed/ordered labs, encouraged healthy, low carbohydrate lifestyle and at least 150min/week of exercise, continue on aspirin 81 mg daily, Coreg 12.5 mg 2 times daily, olmesartan 40 mg daily, simvastatin 40 mg nightly. Continue seeing Dr. Knott cardiology Assessment & Plan (03/06/2022 11:09 AM MEDIA EXECUTIVE): Follow up with cardiology Assessment & Plan (11/11/2020 4:37 PM CDT): Follow up with cardiology Assessment & Plan (06/05/2019 8:50 PM MEDIA EXECUTIVE): Follow up with cardiology Hypertension, essential 04/27/2011 Assessment & Plan (08/07/2024 10:10 AM CDT): -chronic, stable -Discussed/ordered labs -continue on aspirin 81 mg daily, Coreg 12.5 mg 2 times daily, olmesartan 40 mg daily, simvastatin 40 mg nightly. -Continue seeing cardiology -Recommend healthy low-salt diet Assessment & Plan (01/31/2024 7:55 AM CDT): -chronic, stable -Discussed/ordered labs -continue on aspirin 81 mg daily, Coreg 12.5 mg twice daily, olmesartan 40 mg daily. -Continue seeing Dr. Sheldon cardiology -recommend healthy, low-salt diet Assessment & Plan (07/26/2023 2:12 PM CDT): -chronic, stable -Discussed/ordered labs -continue on aspirin 81 mg daily, Coreg 12.5 mg twice daily, olmesartan 40 mg daily. -Continue seeing Dr. Sheldon cardiology -recommend healthy, low-salt diet Assessment & Plan (01/23/2023 3:03 PM CDT): Chronic problem-stable BP this visit 140/78, rechecked after 10 minute rest BP improved to 130/70 Continue olmesartan 40 mg daily, continue carvedilol 12.5 mg b.i.d. with meals Continue to monitor BP Recommend DASH diet, heart-healthy lifestyle, exercise. Discussed the risks of hypertension. Assessment & Plan (07/25/2022 11:52 AM CDT): HPI: Condition is stable A&P: Discussed/ordered labs, encouraged healthy, low carbohydrate lifestyle and at least 150min/week of exercise, continue on aspirin 81 mg daily, Coreg 12.5 mg twice daily, olmesartan 40 mg daily. Continue seeing cardiology Resolved Problems Problem Noted Date Diagnosed Date Resolved Date Elevated vitamin B12 level 01/23/2023 0 08/07/2024 Assessment & Plan (01/31/2024 10:59 AM CDT): -acute, not at goal -discussed/ordered labs -continue off vitamin B12 supplement at this time -will recheck labs prior to the next visit Assessment & Plan (01/23/2023 3:00 PM CDT): Acute problem-this is a new finding Last B12 level >2,000 Ordered a vitamin B12 level to be obtained today Patient encouraged to decrease her vitamin B12 to 3 days a week until results are available for review Continue to monitor Hair thinning 01/23/2023 08/07/2024 Assessment & Plan (01/23/2023 3:01 PM CDT): Acute problem-this is a new problem that was brought to the patient's attention by her rheumatoid specialist. We discussed by attending college in patient encouraged to purchase OTC biotin collagen, such as hair, skin, and nails-take as directed Follow-up with RA specialist as scheduled Continue to monitor Upper respiratory infection with cough and congestion 01/09/2023 07/26/2023 Assessment & Plan (01/23/2023 2:56 PM CDT): Acute problem-improving Over the counter Coricidin HBP for cough and congestion p.r.n. Follow-up with PCP as scheduled sooner p.r.n. Continue to monitor Stay hydrated-encouraged to continue drinking plenty of water Assessment & Plan (01/10/2023 6:58 AM CDT): Acute problem-onset 2 weeks with worsening of cough over the last week Recommend fluids, rest, humidification if needed. She was instructed to call back if symptoms do not improved in a week, or if worsening ones arise. Education provided. Over the counter Coricidin HBP for cough and congestion Warm salt water gargles 3 to 4 times daily Cool mist vaporizer or humidifier Change toothbrush after 48 hours of antibiotic use Right otitis media with effusion 01/09/2023 07/26/2023 Assessment & Plan (01/23/2023 2:57 PM CDT): Acute problem-improving Continue to avoid excess water in the ears Avoid cleaning ears with Q-tips or other object Continue with fluticasone 50 mcg-2 sprays each nostril daily Continue to monitor Assessment & Plan (01/10/2023 7:04 AM CDT): Acute problem-onset 2 weeks with worsening of earache over the last week Ordered amoxicillin 500 mg-take 1 capsule 3 times a day Order fluticasone 50 mcg-2 sprays each nostril daily Ordered Medrol Dosepak-take as directed Patient educated on medication and side effects, encouraged to avoid grapefruit or grapefruit juice while taking medication Avoid excess water in ear Encouraged not to clean ears with Q-tips or other objects Follow-up as scheduled-sooner p.r.n. Well woman exam 12/29/2022 01/31/2024 Overview (12/29/2022): Lab: Pap:all normal Labs with pcp. Hollis:due in feb 2023 Colonoscopy:2021- due 2026 BMD:2020 -1. Assessment & Plan (01/04/2024 2:54 PM CDT): Complete exam done Thyroid function test abnormal 03/06/2022 07/25/2022 Assessment & Plan (03/06/2022 11:13 AM MEDIA EXECUTIVE): Continue follow up with endocrinology Screen for colon cancer 11/26/202107/09 Overview (11/26/2021): Added automatically from request for surgery [id number] Hematuria 11/11/2020 07/25/2022 Assessment & Plan (11/11/2020 4:46 PM CDT): Will recheck UA Arthralgia of right hip 10/16/202007/09 High risk medication use 02/15/2017 Sick sinus syndrome (CMS/HCC) 02/06/2017 07/25/2022 Chronic anticoagulation 02/06/201707/09 Osteoarthritis 11/15/2016 07/25/2022 Malignant neoplasm of endometrium (CMS/HCC) 01/13/2016 07/25/2022 Mixed hyperlipidemia 08/24/2013 022 Overview (07/15/2016): MIXED HYPERLIPIDEMIA Assessment & Plan (03/06/2022 11:11 AM MEDIA EXECUTIVE): Continue Simvastatin 40mg QHS Assessment & Plan (11/11/2020 4:43 PM CDT): Continue simvastatin 40mg a day Assessment & Plan (06/05/2019 8:49 PM MEDIA EXECUTIVE): Stable on current therapy Essential hypertension 08/24/201303/30 Overview (07/15/2016): BENIGN HYPERTENSION Assessment & Plan (03/06/2022 11:04 AM MEDIA EXECUTIVE): Continue Olmesartan 40mg a day and Carvedilol 12.5mg one tablet twice a day Assessment & Plan (11/11/2020 4:35 PM CDT): Continue Olmesartan 40mg a day and Carvedilol 12.5mg twice a day Assessment & Plan (06/05/2019 8:49 PM MEDIA EXECUTIVE): Continue current therapy Hyperlipidemia 04/27/2011 09/16/2021 Immunizations Immunization Administration Dates Next Due COVID-19 mRNA (Streem) 0.3 m L (30 mcg) vaccine (12 years and up) 12/08/2023,07/14/2023,12/28/2022 Influenza, Quad, Adjuvantate d, Intramuscular 01/19/2021 Influenza, Quadrivalent, Hig h Dose, Preservative Free, Intrr 01/05/2023,01/13/2022,01/07/2020 Influenza, Quadrivalent, Spl it, Preservative Free, Intramuscular 01/16/2013 Influenza, Trivalent, Cell Culture-based MDCK, Preservative Free, Antibiotic Free, Intramuscular 04/10/2014 Influenza, Trivalent, High D ose, Split, Preservative Free, Intramuscular 01/05/2024,01/04/2019,12/27/2017,12/26,12/31/2015 Influenza, Trivalent, IM (MDV) 02/03/2012,2010 Influenza, Trivalent, Preser vative Free, Intramuscular 01/27/2015 Influenza, Unspecified 01/03/2022,01/07/2020,01/2018 Moderna Sars-cov-2 Bivalent Vaccine 50 Mcg/0.5 mL (12+ YRS)-Blue/[place]ores 07/29/2022 Pneumococcal Conjugate PCV 13 01/20/2015 Pneumococcal Polysaccharide PPV23 11/15/2016, RSV Vaccine, Pref, Recombina nt, Subunit, Adjuvanted, PF, IM (Arexvy) 02/16/2023 Tdap 03/07/2015,04/10/2014 ZOSTER LIVE 01/06/2011 ZOSTER Recombinant 11/24/2023,09/25/2023 Social History Tobacco Use Types Packs/Day Years Used Date Smoking Tobacco: Never Smokeless Tobacco: Never Tobacco Cessation:Counseling Given: Not Answered Alcohol Use Standard Drinks/Week Comments No 0 [...] you have a drink containing alcohol? Never 08/07/2024 Q2: How many drinks containi ng alcohol do you have on a typical day when you are drinking? Patient does not drink Q3: How often do you have si x or more drinks on one occasion? Never 08/07/2024 PHQ-2 Answer Date Recorded PHQ-2 Total Score (If total score is 3 or more points, staff should administer the PHQ-9) 0 08/07/2024 Comments No Sex and Gender Information Value Date Recorded Sex Assigned at Not on file Legal Sex Female 11:24 PM MEDIA EXECUTIVE Gender Identity Female 06/26/2020 10:20 AM CDT Sexual Orientation Not on file Last Filed Vital Signs Vital Sign Reading Time Taken Comments Blood Pressure 139/68 08/07/2024 9:09 AM CDT Pulse 71 08/07/2024 9:09 AM CDT Temperature 36.4 C (97.6 F) 08/07/2024 9:09 AM CDT Respiratory Rate 18 08/07/2024 9:09 AM CDT Oxygen Saturation 99% 08/07/2024 9:09 AM CDT Inhaled Oxygen Concentration - - Weight 90.7 kg (200 lb) 08/07/2024 9:09 AM CDT Height 154.8 cm (5' 0.95) 08/07/2024 9:09 AM CD T Body Mass Index 37.86 08/07/2024 9:09 AM CDT Plan of Treatment Not on file Medical Devices Implanted Type Area Brazer Controlled Atmospheric Furnace Device Identifier Shelf Expiration Date Model / Serial / Lot Pacemaker-2012 Implanted:04/2012 by Kristie Matos (Quantity not on file) Pacemaker Chest St Will Medical SSS, Symptomatic Bradycardia ACCENT [id number] / [id number] / Procedures Procedure Name Priority Date/Time Associated Diagnosis Comments DEVICE CHECK - REMOTE Routine 08/26/2024 11:33 AM CDT Cardiac pacemaker in situ Paroxysmal atrial fibrillation (HCC) SSS (sick sinus syndrome) (HCC) DEXA AXIAL SKELETON BONE DENSITY 1 OR MORE SITES Schedule Routine, Read Routine (OP Routine) 08/13/2024 1:15 PM CDT Osteoporosis screening Postmenopausal T4, FREE Routine 07/31/2024 9:07 AM CDT Subclinical hypothyroidism EGFR Routine 07/31/2024 9:07 AM CDT Hypertension, essential DIFFERENTIAL AUTO Routine 07/31/2024 9:0 7 AM CDT Hypertension, essential CBC WITH AUTO DIFFERENTIAL Routine 07/31/2024 9:07 AM CDT Hypertension, essential COMPREHENSIVE METABOLIC PANEL Routine 07/31/2024 9:07 AM CDT Hypertension, essential THYROID FUNCTION CASCADE Routine 07/31/2024 9:07 AM CDT Subclinical hypothyroidism LIPID PANEL Routine 07/31/2024 9:07 AM CDT Mixed hyperlipidemia VITAMIN D 25 HYDROXY Routine 07/31/2024 9:07 AM CDT Vitamin D deficiency VITAMIN B12 Routine 07/31/2024 9:07 AM CDT Elevated vitamin B12 level DEVICE CHECK - REMOTE Routine 07/16/2024 10:09 AM CDT Paroxysmal atrial fibrillation (HCC) SSS (sick sinus syndrome) (HCC) POCT LIPID PANEL Routine 07/09/2024 1:52 PM CDT Coronary artery disease involving [place] coronary artery of [place] heart without angina pectoris Mixed hyperlipidemia FOLATE Routine 06/25/2024 11:57 AM CDT TRANSFERRIN Routine 06/25/2024 11:52 AM CDT VITAMIN B12 Routine 06/25/2024 11:52 AM CDT RETICULOCYTES Routine 06/25/2024 11:52 AM CDT FERRITIN Routine 06/25/2024 11:52 AM CDT IRON PROFILE W/ IBC Routine 06/25/2024 11:52 AM CDT SCREENING MAMMOGRAM BILATERAL W JAMEL Schedule Routine, Read Routine (OP Routine) 05/10/2024 8:42 AM MEDIA EXECUTIVE Breast cancer screening by mammogram HEPATITIS C ANTIBODY Routine 08/02/2022 7:30 AM CDT Encounter for hepatitis C screening test for low risk patient COLONOSCOPY 01/25/2022 7:37 AM CDT from Last 3 Months or Most Recently Relevant to Health Maintenance Results * DEVICE CHECK - REMOTE (08/26/2024 11:33 AM CDT) Anatomical Region Laterality Modality Other Narrative 08/27/2024 9:[address] Will Dual Pacemaker Dx; SSS, PAF, Symptomatic Bradycardia. DOI 10/08/2012. [place] remote home monitor . DDD Pacemaker Remote. Transmission attached. Battery status: 2.57 V, AVERY reached 08/25/2024. Stable lead impedances, pacing and sensing thresholds. Presenting rhythm: -VS (SR). AP-22%, COGNOS TM1 DEVELOPER-<1%. No AT/AF episodes noted. No Ventricular high rate episodes detected. Medications: ASA 81 mg, Coreg. See scanned report. Office pacemaker follow up: post pacemaker replacement. [place] remote after generator replacement. Elva Chavez, RN us Jamison Sheldon MD [facility] Final Result * Dexa Axial Skeleton Bone Density 1 or 2 Site (08/13/2024 1:15 PM CDT) Anatomical Region Laterality Modality Body N/A Other 08/14/2024 1:32 PM CDT Narrative 08/14/2024 1:34 PM CDT EXAM DESCRIPTION: DEXA AXIAL SKELETON BONE DENSITY 1 OR MORE SITES REASON FOR STUDY: 73 y/o year old F with given history of: osteoporosis screening Screening. Brazer Controlled Atmospheric Furnace/Model: ServerPilot (S/N [id number]) Facility LSC value of 0.022 for the AP spine, 0.027 for the femur, and 0.023 for the forearm. CLINICAL INFORMATION: Current height: 62 inches Maximum height: 62 inches Weight: 200 pounds Risk factors: Postmenopausal, rheumatoid arthritis COMPARISON: 09/29/2020 Dissimilar scan types or analysis methods precludes assessment for calculating a significant change. FINDINGS: AP LUMBAR SPINE L1-L4: Total BMD is 1.056 g/cm2 T-score is 0.1 LEFT HIP: Total BMD is 0.851 g/cm2 T-score is -0.7 Femoral neck BMD is 0.669 g/cm2 T-score is -1.6 FRAX: 10 year risk for a major osteoporotic fracture is 14 %, 10 year risk for a hip fracture is 3.2 % Per National Osteoporosis Foundation guidelines, this patient does meet the criteria for pharmacological treatment of patients with FRAX 10 year major osteoporotic fracture risk scores of = or greater than 20% or a 10 year probability of a hip fracture = or greater than 3%, to reduce fracture risk. Additional factors such as frequent falls are not represented in FRAX and warrant individual clinical judgment. IMPRESSION: Low Bone Mass. REFERENCE: Bone mineral density: T-Score: Normal (T-score above or = -1.0) Low bone mass (T-score between -1.0 and -2.5) replaces the previously used term osteopenia Osteoporosis (T-score = or below -2.5) Z-Score: Within the expected range for age (Z-score above -2.0) Below the expected range for age (Z-score is -2.0 or below) Please see below follow up recommendations. Medical evaluation for secondary causes of low bone mineral density may be appropriate. FRAX is a World Health Organization validated fracture risk assessment tool that calculates a person's 10 year probability of a major osteoporosis related fracture and hip fracture. According to the National Osteoporosis Foundation guidelines, postmenopausal women and men age 50 or older with low bone mass and a 10 year probability of a major osteoporosis related fracture = or greater than 20% or a 10 year probability of a hip fracture = or greater than 3% should be considered for pharmacological treatment for the prevention of osteoporosis. For further information, including treatment recommendations, please refer to the 2019 ISCD Official Positions (http://www.iscd.org) and the NOF's Clinician's Guide to Prevention and Treatment of Osteoporosis (http://www.nof.org/professionals/clinical-guidelines) THIS IS AN ELECTRONICALLY VERIFIED FINAL REPORT 08/14/2024 1:34 PM - Electronically signed by Greg Montague M.D. MF: [email or web address] Report ID: [id number] Reading Location: [place] [address] Procedure Note Greg Montague MD - 08/14/2024 EXAM DESCRIPTION: DEXA AXIAL SKELETON BONE DENSITY 1 OR MORE SITES REASON FOR STUDY: 73 y/o year old F with given history of:osteoporosis screening Screening. Brazer Controlled Atmospheric Furnace/Model: [employer] Discovery SL (S/N [id number]) Facility LSC value of 0.022 for the AP spine, 0.027 for the femur, and0.023 for the forearm. CLINICAL INFORMATION: Current height: 62 inches Maximum height: 62 inches Weight: 200 pounds Risk factors: Postmenopausal, rheumatoid arthritis COMPARISON: 09/29/2020 Dissimilar scan types or analysis methods precludes assessment for calculating a significant change. FINDINGS: AP LUMBAR SPINE L1-L4: Total BMD is 1.056 g/cm2 T-score is 0.1 LEFT HIP: Total BMD is 0.851 g/cm2 T-score is -0.7 Femoral neck BMD is 0.669 g/cm2 T-score is -1.6 FRAX: 10 year risk for a major osteoporotic fracture is 14 %, 10 year risk for ahip fracture is 3.2 % Per National Osteoporosis Foundation guidelines, this patient does meetthe criteria for pharmacological treatment of patients with FRAX 10 year major osteoporotic fracture risk scores of = or greater than 20% or a 10 year probability of a hip fracture = or greater than 3%, to reduce fracturerisk. Additional factors such as frequent falls are not represented in FRAX and warrant individual clinical judgment. IMPRESSION: Low Bone Mass. REFERENCE: Bone mineral density: T-Score: Normal (T-score above or = -1.0) Low bone mass (T-score between -1.0 and -2.5) replaces thepreviously used term osteopenia Osteoporosis (T-score = or below -2.5) Z-Score: Within the expected range for age (Z-score above -2.0) Below the expected range for age (Z-score is -2.0 or below) Please see below follow up recommendations. Medical evaluation forsecondary causes of low bone mineral density may be appropriate. FRAX is a World Health Organization validated fracture risk assessmenttool that calculates a person's 10 year probability of a major osteoporosisrelated fracture and hip fracture. According to the National OsteoporosisFoundation guidelines, postmenopausal women and men age 50 or older with low bonemass and a 10 year probability of a major osteoporosis related fracture = or greater than 20% or a 10 year probability of a hip fracture = or greaterthan 3% should be considered for pharmacological treatment for the preventionof osteoporosis. For further information, including treatment recommendations, please referto the 2019 ISCD Official Positions (http://www.iscd.org) and the NOF's Clinician's Guide to Prevention and Treatment of Osteoporosis (http://www.nof.org/professionals/clinical-guidelines) THIS IS AN ELECTRONICALLY VERIFIED FINAL REPORT 08/14/2024 1:34 PM - Electronically signed by Greg Montague M.D. MF: [email or web address] Report ID: [id number] Reading Location: [place] [address] Yun Arenas NP IM DXA PROCEDURES Final Res ult * eGFR (07/31/2024 9:07 AM CDT) eGFR 68 >=60 mL/min/1. 73 m2 Comment: Interpretive Data Reference Interval Normal >/= 90 mL/min/1.73m2 Mildly decreased* 60 - 89 mL/min/1.73m2 Mildly to moderately decreased 45 - 59 mL/min/1.73m2 Moderately to severely decreased 30 - 44 mL/min/1.73m2 Severely decreased 15 - 29 mL/min/1.73m2 Kidney Failure < 15 mL/min/1.73m2 *Relative to young adult level Estimated glomerular filtration rate is determined by the 2020 CKD-EPI equation recommended by the National Kidney Foundation (A Unifying Approach to GFR Estimation: Recommendations of the NKF-ASK Task Force on Reassessing the Inclusion of Race in Diagnosing Kidney Disease, JASN 2020). The CKD-EPI equation should not be used for patients with unstable renal function and has not been validated in children and those over 70. Current interpretive data was last reviewed 2021. Blood 07/31/2024 9:07 AM CDT 07/31/2024 9:31 AM CDT Yun Arenas NP LAB BLOOD ORDERABLES Final R esult [facility] ([place]) 1 [facility] Department [place] [address] * Differential, auto (07/31/2024 9:07 AM CDT) Neutrophil abs 3.13 1.50 - 6.50 K/cumm Imm gran abs 0.02 0.00 - 0.10 K/cumm [facility] ([place]) Lymphocyte abs 1.41 0.80 - 3.30 K/cumm [facility] ([place]) Monocyte abs 0.56 0.20 - 0.80 K/cumm [facility] ([place]) Eosinophil abs 0.14 0.00 - 0.50 K/cumm [facility] ([place]) Basophil abs 0.05 0.00 - 0.10 K/cumm [facility] ([place]) Neutrophil pct 59.0 % [facility] ([place]) Comment: Interpretive Data Percent cell count reference ranges are not reported, since discordance with absolute values may lead to misinterpretation of CBC data. Current Interpretive Data was last revised on 2017. Imm gran pct 0.4 % [facility] ([place]) Comment: Interpretive Data Percent cell count reference ranges are not reported, since discordance with absolute values may lead to misinterpretation of CBC data. Current Interpretive Data was last revised on 2017. Lymphocyte pct 26.6 % [facility] ([place]) Comment: Interpretive Data Percent cell count reference ranges are not reported, since discordance with absolute values may lead to misinterpretation of CBC data. Current Interpretive Data was last revised on 2017. Monocyte pct 10.5 % [facility] ([place]) Comment: Interpretive Data Percent cell count reference ranges are not reported, since discordance with absolute values may lead to misinterpretation of CBC data. Current Interpretive Data was last revised on 2017. Eosinophil pct 2.6 % [facility] ([place]) Comment: Interpretive Data Percent cell count reference ranges are not reported, since discordance with absolute values may lead to misinterpretation of CBC data. Current Interpretive Data was last revised on 2017. Basophil pct 0.9 % [facility] ([place]) Comment: Interpretive Data Percent cell count reference ranges are not reported, since discordance with absolute values may lead to misinterpretation of CBC data. Current Interpretive Data was last revised on 2017. Blood 07/31/2024 9:07 AM CDT 07/31/2024 9:[address] [facility] LAB BLOOD ORDERABLES Final R cami Performing Organization Address City/[facility] Co de Phone Number [facility] ([place]) 1 [facility] Department [place] [address] * (ABNORMAL) Thyroid Function [place] (07/31/2024 9:07 AM CDT) TSH 5.17(H) 0.30 - 4.20 mcIUnit/mL Blood 07/31/2024 9:07 AM CDT 07/31/2024 9:[address] [facility] LAB BLOOD ORDERABLES Final R esult [facility] PAYAN ([place]) [address] [facility] [place] [address] * (ABNORMAL) CBC with auto differential (07/31/2024 9:07 AM CDT) WBC 5.31 3.80 - 9.90 K/cumm Hgb 11.2(L) 11.9 - 15.5 g/dL [facility] ([place]) Hct 34.1(L) 35.6 - 45.5 % [facility] ([place]) Plt 188 150 - 400 K/cumm [facility] ([place]) MPV 9.4 9.1 - 12.3 fL [facility] ([place]) RBC 3.59(L) 3.90 - 5.20 M/cumm [facility] ([place]) MCV 95.0 81.3 - 96.4 fL [facility] ([place]) MCH 31.2 27.1 - 33.3 pg [facility] ([place]) MCHC 32.8 32.3 - 35.7 g/dL [facility] ([place]) RDW CV 12.9 11.1 - 14.9 % [facility] ([place]) RDW SD 44.5 35.7 - 48.1 fL [facility] ([place]) NRBC abs 0.00 0.00 - 0.01 K/cumm [facility] ([place]) Blood 07/31/2024 9:07 AM CDT 07/31/2024 9:[address] [facility] LAB BLOOD ORDERABLES Final R esult [facility] PAYAN ([place]) [address] [facility] [place] [address] * Vitamin D 25 hydroxy (07/31/2024 9:07 AM CDT) Pathologist [facility] Vitamin D 25-OH 62 30 - 80 ng/mL Blood 07/31/2024 9:07 AM CDT 07/31/2024 9:31 AM CDT Yun Arenas CORPORATE SAFETY DIRECTOR LAB BLOOD ORDERABLES Final R esult Performing Organization Address City/[facility] Co de Phone Number [facility] [address] [place] [address] * T4, free (07/31/2024 9:07 AM CDT) Free T4 1.19 0.90 - 1.70 ng/dL Blood 07/31/2024 9:07 AM CDT 07/31/2024 9:31 AM CDT Narrative [facility] ([place]) - 07/31/2024 11:09 AM CDT This test was reflexed from a TSH result. Yun Arenas CORPORATE SAFETY DIRECTOR LAB BLOOD ORDERABLES Final R esult Performing Organization Address [facility] Co de Phone Number ROC[facility] PAYAN ([place]) 1 [facility] [place] [address] * Vitamin B12 (07/31/2024 9:07 AM CDT) Vitamin B12 449 230 - 1,250 pg/mL Blood 07/31/2024 9:07 AM CDT 07/31/2024 9:31 AM CDT Yun Arenas CORPORATE SAFETY DIRECTOR LAB BLOOD ORDERABLES Final R esult Performing Organization Address City/[facility] Co de Phone Number ROC[facility] PAYAN ([place]) 1 [facility] [place] [address] * Lipid panel (07/31/2024 9:07 AM CDT) Cholesterol 118 30 - 199 mg/dL Comment: Interpretive Data Ages < or = 19 years Acceptable: <170 mg/dL Borderline high: 170-199 mg/dL High: >or= 200 mg/dL Ages > or = 20 years Desirable: <200 mg/dL Borderline high: 200-239 mg/dL High: >or= 240 mg/dL Literature References: 1. Expert Panel on Integrated Guidelines for Cardiovascular Health and Risk Reduction in Children and Adolescents. Pediatrics 2011;128:S213 2. NCEP Expert Panel. Circulation 2004;110:227 Current Interpretive Data was last revised on 2017. Triglycerides 66 <=149 mg/dL [facility] ([place]) Comment: Interpretive Data Ages < or = 9 years Acceptable: <75 mg/dL Borderline high: 75-99 mg/dL High: >or= 100 mg/dL Ages 10 to 20 years Acceptable: <90 mg/dL Borderline high: 90-129 mg/dL High: >or= 130 mg/dL Ages > or = 20 years Desirable: <150 mg/dL Borderline high: 150-199 mg/dL High: 200-499 mg/dL Very high: >or= 499 mg/dL Literature References: 1. Expert Panel on Integrated Guidelines for Cardiovascular Health and Risk Reduction in Children and Adolescents. Pediatrics 2011;128:S213 2. NCEP Expert Panel. Circulation 2004;110:227 Current Interpretive Data was last revised on 2017. HDL 57 >=40 mg/dL [facility] ([place]) Comment: Interpretive Data Ages < or = 19 years Acceptable: >45 mg/dL Borderline low: 40-45 mg/dL Low: <40 mg/dL Ages > or = 20 years Desirable: >or= 60 mg/dL Low: <40 mg/dL Literature References: 1. Expert Panel on Integrated Guidelines for Cardiovascular Health and Risk Reduction in Children and Adolescents. Pediatrics 2011;128:S213 2. NCEP Expert Panel. Circulation 2004;110:227 Current Interpretive Data was last revised on 2017. LDL, calculated 47 <=129 mg/dL [facility] ([place]) Comment: Interpretive Data Ages < or = 19 years Acceptable: <110 mg/dL Borderline high: 110-129 mg/dL High: >or= 130 mg/dL Ages > or = 20 years Optimal: <100 mg/dL Near optimal: 100-129 mg/dL Borderline high: 130-159 mg/dL High: >160 mg/dL Calculated using the Fuentes LDL-C estimating equation. This equation was implemented on 2023. Prior to this date LDL-C was estimated using the Friedewald equation. Literature References: 1. Expert Panel on Integrated Guidelines for Cardiovascular Health and Risk Reduction in Children and Adolescents. Pediatrics 2011;128:S213 2. NCEP Expert Panel. Circulation 2004;110:227 3. Alfredo M et al. MICKEY Cardiol. 2020 August 08;5(5):540-548. doi: 10.1001/[email or web address].2020.0013 Current Interpretive Data was last revised on 2023. Non-HDL Cholesterol 61 mg/dL [facility] ([place]) Comment: Interpretive Data Ages < or = 19 years Acceptable: <120 mg/dL Borderline high: 120-144 mg/dL High: >145 mg/dL Ages > or = 20 years When triglycerides are >200 mg/dL, Non-HDL cholesterol is a secondary target of therapy with treatment goals that are 30 mg/dL greater than the LDL cholesterol target. Literature References: 1. Expert Panel on Integrated Guidelines for Cardiovascular Health and Risk Reduction in Children and Adolescents. Pediatrics 2011;128:S213 2. NCEP Expert Panel. Circulation 2004;110:227 Current Interpretive Data was last revised on 2017. Chol/HDL ratio 2 [facility] ([place]) Blood 07/31/2024 9:07 AM CDT 07/31/2024 9:31 AM CDT Yun Arenas NP LAB BLOOD ORDERABLES Final R esult [facility] ([place]) 1 [facility] [place] [address] * (ABNORMAL) Comprehensive metabolic panel (07/31/2024 9:07 AM CDT) Sodium 141 135 - 145 mmol/L Potassium, pl 4.0 3.3 - 4.9 mmol/L [facility] ([place]) Chloride 106 97 - 110 mmol/L [facility] ([place]) CO2 23 22 - 32 mmol/L [facility] ([place]) Anion gap 11 2 - 15 mmol/L [facility] ([place]) BUN 19 6 - 25 mg/dL [facility] ([place]) Creatinine 0.89 0.60 - 1.10 mg/dL [facility] ([place]) Glucose 86 70 - 199 mg/dL [facility] ([place]) Comment: Interpretive Data Fasting glucose >/= 126 mg/dl is diagnostic for diabetes. Fasting is defined as no caloric intake for at least 8 hours. Fasting glucose between 100 mg/dl to 125 mg/dl is diagnostic of prediabetes. In a patient with classic symptoms of hyperglycemia or hyperglycemic crisis, a random glucose >/= 200 mg/dl is diagnostic for diabetes. In the absence of unequivocal hyperglycemia, results should be confirmed by repeat testing. The classification and Diagnosis of Diabetes Diabetes Care 2021; 46: S19-S40. Current interpretive data was last revised 2022. Calcium 9.0 8.5 - 10.3 mg/dL [facility] ([place]) Bilirubin, total 0.5 0.1 - 1.2 mg/dL [facility] ([place]) Protein, pl 6.4(L) 6.5 - 8.5 g/dL [facility] ([place]) Albumin 3.9 3.5 - 5.0 g/dL [facility] ([place]) Alk phos 47 40 - 130 Units/L [facility] ([place]) ALT 13 7 - 45 Units/L [facility] ([place]) AST 17 10 - 45 Units/L [facility] ([place]) Blood 07/31/2024 9:07 AM CDT 07/31/2024 9:31 AM CDT Yun Arensa NP LAB BLOOD ORDERABLES Final R esult [facility] ([place]) 1 [facility] Department [place] [address] * DEVICE CHECK - REMOTE (07/16/2024 10:09 AM CDT) Anatomical Region Laterality Modality Other Narrative 07/17/2024 3:[address] Will Dual Pacemaker Dx; SSS, Symptomatic Bradycardia. DOI 10/08/2012. [place] remote home monitor Q3 mo and office pacer checks Q1 yr. Routine DDD Pacemaker Remote. Transmission attached. Battery status: 2.59 V, < 3 months remaining battery life to AVERY. Stable lead impedances, pacing and sensing thresholds. Presenting rhythm: /VS AP-21%, COGNOS TM1 DEVELOPER-< 1% 1 AT/AF episodes noted, longest episode was 8 seconds in duration, IEGM demonstrates AT/AF. AF Helen < 1%. No Ventricular high rate episodes detected. Medications: ASA 81 mg, carvedilol 12.5 mg, olmesartan 40 mg See scanned report. Office pacemaker follow up: Pending generator change [place] remote f/u 08/20/24. Wiley Granados, RN Jamison Sheldon MD CV CARDIAC SERVICES PROCE [facility] Final Result * POCT lipid panel (07/09/2024 1:52 PM CDT) Cholesterol, POC 112 mg/dL HDL, POC 63 mg/dL Triglycerides, POC 48 mg/dL LDL Cholesterol POC 39 mg/dL Chol/HDL Ratio, POC 0.6 Non-HDL Cholesterol, POC 49 mg/dL Cholesterol Total, POC 112 mg/dL Capillary blood 07/09/2024 1 :52 PM CDT Jamison Sheldon MD POINT OF CARE TEST ORDERA BLES Final Result * Folate (06/25/2024 11:57 AM CDT) Pathologist [facility] Folic acid >20.0 >=5.0 ng/mL Comment:Slightly Hemolyzed S pecimen. Results may be affected. Blood 06/25/2024 11:5 7 AM CDT 06/25/2024 12:29 PM CDT Johnny Michelle MD LAB BLOOD ORDERABLES Final Resul t [facility] ([place]) 1 [facility] Department [place] [address] * Iron profile w/ IBC (06/25/2024 11:52 AM CDT) Iron 68 35 - 145 mcg/dL TIBC 292 250 - 400 mcg/dL [facility] ([place]) Transferrin saturation 23 20 - 50 % [facility] ([place]) Blood 06/25/2024 11:5 2 AM CDT 06/25/2024 12:01 PM CDT us Johnny Michelle MD LAB BLOOD ORDERABLES Final Resul t Performing Organization Address [facility] Co de Phone Number [facility] ([place]) 1 [facility] [place] [address] * Reticulocyte Count (06/25/2024 11:52 AM CDT) Retics, absolute 0.071 0.020 - 0.087 M/cumm Retics 1.9 0.4 - 2.9 % [facility] ([place]) Reticulocyte Hgb 34.4 30.5 - 38.0 pg [facility] ([place]) Blood 06/25/2024 11:5 2 AM CDT 06/25/2024 12:01 PM CDT us Johnny Michelle MD LAB BLOOD ORDERABLES Final Resul t Performing Organization Address [facility] Co de Phone Number [facility] ([place]) 1 [facility] [place] [address] * Transferrin (06/25/2024 11:52 AM CDT) Transferrin 251 200 - 360 mg/dL Comment: Lipemia present. Results may be affected. Testing performed by: [facility], [address] [place] [address]., [address] Blood 06/25/2024 11:5 2 AM CDT 06/25/2024 1:25 PM CDT us Johnny Michelle MD LAB BLOOD ORDERABLES Final Resul t Performing Organization Address [facility] Co de Phone Number [facility] ([place]) 1 [facility] [place] [address] * Ferritin (06/25/2024 11:52 AM CDT) Ferritin 121 15 - 150 ng/mL Blood 06/25/2024 11:5 2 AM CDT 06/25/2024 12:01 PM CDT us Johnny Michelle MD LAB BLOOD ORDERABLES Final Resul t Performing Organization Address [facility] Co de Phone Number [facility] ([place] [address] [facility] [place] [address] * Vitamin B12 (06/25/2024 11:52 AM CDT) Vitamin B12 595 230 - 1,250 pg/mL Blood 06/25/2024 11:5 2 AM CDT 06/25/2024 12:01 PM CDT Johnny Michelle MD LAB BLOOD ORDERABLES Final Resul t Performing Organization Address [facility] de Phone Number [facility] ([place]) 1 [facility] [place] [address] * Screening Mammogram Bilateral W Jamel (05/10/2024 8:42 AM MEDIA EXECUTIVE) Anatomical Region Laterality Modality Breast Bilateral Mammography 05/10/2024 9:26 AM MEDIA EXECUTIVE Impressions 05/10/2024 9:26 AM MEDIA EXECUTIVE There is no mammographic evidence to suggest malignancy. The patient may continue screening mammography as per ACR guidelines. FINAL ASSESSMENT: BI-RADS Category 1: Negative. Electronically signed by: Keya Howell M.D. Narrative 05/10/2024 9:26 AM MEDIA EXECUTIVE EXAMINATION: BILATERAL SCREENING MAMMOGRAM WITH TOMOGRAPHY HISTORY: Screening. COMPARISON(S): 2023, 2022, and 2021 TECHNIQUE: Full-field 2D images and digital tomosynthesis images were obtained. CAD was utilized. BREAST PARENCHYMAL COMPOSITION: The breasts are heterogenously dense, which may obscure small masses. FINDINGS: A pacing device obscures a portion of the right axilla. There are no suspicious masses. No suspicious calcifications are seen. There is no unexplained architectural distortion. There is no skin thickening seen. There are no mammographically abnormal lymph nodes seen in the axillae or elsewhere. us Yun Arenas NP IMG MAMMO PROCEDURES Final R esult * Hepatitis C antibody (08/02/2022 7:30 AM CDT) Hep C Ab Nonreactive Nonreactive [facility] ([place]) Comment: Interpretive Data Nonreactive: Antibodies to HCV not detected. Does NOT exclude the possibility of recent exposure to HCV. Equivocal: Equivocal for HCV antibodies. Supplemental molecular testing will be automatically performed to determine infection status in accordance with current CDC screening recommendations. Reactive: Positive for HCV antibodies. This may represent current or past HCV infection. Supplemental molecular testing will be automatically performed to determine current infection status in accordance with current CDC screening recommendations. Interpretive data was last revised on 2019. Testing performed by: [facility], [address] [place] [address]., [address] Blood 08/02/2022 7:30 AM CDT 08/02/2022 2:36 PM CDT us Yun Arenas NP LAB MICROBIOLOGY - GENERAL O RDERABLES Edited Result - Final [facility] ([place]) 1 [facility] Department [place] [address] * COLONOSCOPY (01/25/2022 7:37 AM CDT) Anatomical Region Laterality Modality Other Narrative Procedure Note Andriy Frey MD - 01/25/2022 7:37 AM CDT [facility] Patient Name: Estrella Palencia Procedure Date: 01/25/2022 7:37 AM Date of : 1950 Admit Type: Outpatient Age: 71 Gender: Female Attending MD: Andriy Frey M.D. Room: [facility] ENDOSCOPY ROOM 2 Note Status: Finalized Patient Profile: Refer to note in patient chart for documentation of history and physical. Procedure: Colonoscopy Indications: High risk colon cancer surveillance: Personalhistory of colonic polyps, Last colonoscopy: September 2015 Referring MD: Rebecca Johnson M.D. Providers: Andriy Frey M.D. Impression: - Hemorrhoids found on perianal exam. - One 3 mm polyp in the ascending colon, removedwith a jumbo cold forceps. Resected and retrieved. - The examination was otherwise normal. Recommendation: - Discharge patient to home. - Resume previous diet. - Continue present medications. - Await pathology results. - Repeat colonoscopy in 5 years for surveillance. - Return to primary care physician. Medicines: Propofol per Anesthesia Complications: No immediate complications. Estimated Blood Loss: Estimated blood loss: none. Procedure: Pre-Anesthesia Assessment: - This assessment was completed [Time ofAssessment] prior to the administration of sedation. The benefits, risks and alternatives of theprocedure and sedation were discussed and informed consentwas obtained. All questions were answered. Please referto the signed informed consent document in the medical record. The bowel preparation used was Miralax and bisacodyl tablets via single dose instruction. The scope was passed under direct vision. TheColonoscope [id number] was introduced through the anus and advanced to the the cecum, identified by appendiceal orifice and ileocecal valve. The colonoscopy was performed without difficulty. The patient tolerated the procedure well. The qualityof the bowel preparation was good. The ileocecalvalve, appendiceal orifice, and rectum werephotographed. Findings: Hemorrhoids were found on perianal exam. A 3 mm polyp was found in the ascending colon. The polyp was sessile. The polyp was removed with a jumbo cold forceps. Resection andretrieval were complete. Verification of patient identification for thespecimen was done by the physician and nurse using the patient's name andbirth date. Estimated blood loss was minimal. The exam was otherwise without abnormality. Electronically signed by Andriy Frey M.D. Andriy Frey M.D. 01/25/2022 9:36:16 AM Number of Addenda: 0 Note Initiated On: 01/25/2022 7:37 AM Procedure Code(s): --- Professional --- 91472, Colonoscopy, flexible; with biopsy, single or multiple Diagnosis Code(s): --- Professional --- D12.2, Benign neoplasm of ascending colon K64.9, Unspecified hemorrhoids Z86.010, Personal history of colonic polyps CPT copyright 2020 [employer]. All rights reserved. The codes documented in this report are preliminary and upon dairy laboratory technician reviewmay be revised to meet current compliance requirements. Recognized by the [employer] for promoting quality in endoscopy Andriy Frey MD ENDOSCOPY PROCEDURES Final Re sult from Last 3 Months or Most Recently Relevant to Health Maintenance Insurance [employer] CHOICE MEDICARE PPO Influ[employer]dsA CHOICE MEDICARE PPO [employer] CHOICE MEDICARE PPO Advance Directives For more information, please contact: [phone] * Full Code (Latest Code Status on File) Date Activated Date Inactivated Comments 01/25/2022 7:38 AM 01/25/2022 2:38 PM Care Teams Senior It Specialist Relationship Specialty Start Date End Date Yun Arenas NP [address] [place] [address] PCP - General Family Medicine 07/25/22 Johnny Michelle MD [address] [place] [address] Referring Physician Family Practice 07/25/22 Dori Davis MD [address] [address] Consulting Physician Obstetrics and Gynecology 07/26/23 Jamison Sheldon MD [address] [address] Consulting Physician Cardiovascular Disease 07/26/23
--- OUTSIDE RECORDS SUMMARY | 2024-09-04 00:31 | XMS_ITS | Clinical Summary ---
Author Organization [facility] Address [address] [place] [address] Care Team Providers Care Molder Apprentice Name Role Phone Rebecca Johnson MD Primary Care Provider [phone] Source Comments [facility],non-owned Affiliates and Associated Physician Practices is amultiple site organization consisting of ambulatory clinics and hospital sitesin [place], [place], [place] and [place]. This disclosure is being madepursuant to the Care Everywhere program and may not contain all information available regarding this patient. Last updated 17.[facility] Allergies No known active allergies Medications * Be aware that medications may not be up to date on this document. Alwaysverify current medications with the patient. triamterene-hydr ochlorothiazide (MAXZIDE-25) 37.5-25 MG tablet Take 1 Tab by mouth daily. Active simvastatin (ZOCOR) 20 MG tablet Take 20 mg by mouth at bedtime. Active Vitamin D 1000 UNIT CAPSIndications: Vitamin d deficiency Take 1 Tab by mouth daily. 30 12 08/21/2008 Active Active Problems Problem Noted Date Diagnosed Date DJD (degenerative joint disease) 06/05/2008 Overview (08/21/2008): 08/21/2008 hands Obesity 06/05/2008 Overview (08/21/2008): 08/21/2008 Body mass index is 37.03 kg/(m^2). Family History Medical History Relation Name Comments Diabetes Father Heart Failure Maternal Grandfather Stroke Maternal Grandmother Cancer Mother Diabetes Paternal Grandmother Relation Name Status Comments Father DM Maternal Grandfather heart d isease Maternal Grandmother stroke Mother cancer, Paternal Grandmother DM Social History Tobacco Use Types Packs/Day Years Used Date Smoking Tobacco: Never Alcohol Use Standard Drinks/Week Comments No 0 (1 standard drink = 0.6 oz pur e alcohol) Comments No Sex and Gender Information Value Date Recorded Sex Assigned at Not on file Legal Sex Female 7:03 AM INSULATOR TESTER Gender Identity Not on file Sexual Orientation Not on file 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 Not on file Not on file Not on file Last Filed Vital Signs Vital Sign Reading Time Taken Comments Blood Pressure 118/80 08/21/2008 9:27 AM CDT Pulse 76 08/21/2008 9:27 AM CDT Temperature - - Respiratory Rate - - Oxygen Saturation - - Inhaled Oxygen Concentration - - Weight 88.9 kg (196 lb) 08/21/2008 9:27 AM CDT Height 154.9 cm (5' 1) 08/21/2008 9:27 AM CDT Body Mass Index 37.03 08/21/2008 9:27 AM CDT Plan of Treatment Health Maintenance Due Date Last Done Comments BONE DENSITY TESTING 1950 COLOGUARD (AGES 45-75) - COL ON CA SCREENING 1950 COLON MONITORING 1950 COLONOSCOPY - COLON CA SCREENING 1950 CT COLONOGRAPHY - COLON CA SCREENING 1950 Colorectal Cancer Screening 1950 FIT - COLON CA SCREENING 1950 FLEX SIG - COLON CA SCREENING 1950 MAMMOGRAM 1950 HEPATITIS C SCREENING 10/16/1966 DTAP/TDAP/TD VACCINES (1 - Tdap) 10/21/1967 PNEUMOCOCCAL VACCINE 50+ (1 of 1 - PCV) 1998 ZOSTER VACCINE (1 of 2) 1998 Respiratory Syncytial Virus (RSV) Vaccine Pt: or over 60 yrs (1 - 1-dose 75+ series) 10/21/2023 COVID-19 VACCINE ( - 2023-2 5 season) 2023 DEPRESSION SCREENING 04/10/2024 INFLUENZA VACCINE (Season Ended) 2024 HEPATITIS B VACCINE Aged Out No longe r eligible based on patient's age to complete this topic HIB VACCINE Aged Out No longer eligi ble based on patient's age to complete this topic HPV VACCINE Aged Out No longer eligi ble based on patient's age to complete this topic MENINGOCOCCAL (Group B) VACC INE SHARED DECISION-MAKING Aged Out No longer eligibl e based on patient's age to complete this topic MENINGOCOCCAL GROUPS A/C/Y/W VACCINE Aged Out No longer eligible b ased on patient's age to complete this topic Care Teams Molder Apprentice Relationship Specialty Start Date End Date Rebecca Johnson MD [id number] [place] [address] PCP - General 06/05/08
--- OUTSIDE RECORDS SUMMARY | 2024-09-04 00:31 | XMS_ITS | Encounter Summary ---
Author Organization [facility] Address [address] [address] Care Team Providers Care Abstract Clerk Name Role Phone Rebecca Johnson MD Primary Care Provider [phone]- [phone] Rebecca Johnson MD Primary Care Provider [phone]- [phone] Rebecca Johnson MD Unavailable [phone] Ramona Davis MA Unavailable Yun Arenas NP Primary Care Provider [phone] Johnny Michelle MD Unavailable Jaylen Knott MD Unavailable Dori Davis MD Unavailable + [phone] Jamison Sheldon MD Unavailable [phone] Encounter Details Date Type Department Care Team (Late st Contact Info) Description 05/03/2016 Orders Only [facility] Provider, MD Catr[place] [address] [place] [id number] Social History Tobacco Use Types Packs/Day Years Used Date Smoking Tobacco: Never Alcohol Use Standard Drinks/Week Comments No 0 (1 standard drink = 0.6 oz pur e alcohol) Comments Unknown Sex and Gender Information Value Date Recorded Sex Assigned at Not on file Legal Sex Female 11:24 PM RN REVIEW Gender Identity Female 06/26/2020 10:20 AM CDT Sexual Orientation Not on file documented as of this encounter Plan of Treatment Not on file documented as of this encounter Procedures Procedure Name Priority Date/Time Associated Diagnosis Comments CARDIOLOGY REPORT 05/03/2016 documented in this encounter Results * CARDIOLOGY REPORT (05/03/2016) Anatomical Region Laterality Modality Other Narrative 05/03/2016 Ordered by an unspecified provider. us Historical Provider [facility] CARDIAC SERVICES CARINE KING Final Result documented in this encounter Visit Diagnoses Not on filedocumented in this encounter Additional Health Concerns Infection Onset Date Last Indicated Resolved Time COVID: Suspected 10/01/2023 10/01/2023 10/01/2023 6:20 PM CDT documented as of this encounter Care Teams Abstract Clerk Relationship Specialty Start Date End Date Rebecca Johnson MD [address] [place] [id number] PCP - General 07/08/16 07/24/22 Rebecca Johnson MD [address] [place] [address] PCP - General 11/09/15 07/07/16 Rebecca Johnson MD [address] [place] [address] PCP - [employer] Attributed PCP 09/09/15 07/24/22 Yun Arenas NP [address] [facility] [address] [place] [address] PCP - General Family Medicine 07/25/22 Ramona Davis MA [address] [place] [address] [address] [place] [address] ACO Care Burr Bench Operator 10/19/20 10/28/20 Johnny Michelle MD [address] [place] [address] Referring Physician Family Practice 07/25/22 Jaylen Knott MD [address] [place] [address] Consulting Physician Cardiology 07/25/22 07/25/23 Dori Davis MD [address] [place] [address] Consulting Physician Obstetrics and Gynecology 07/26/23 Jamison Sheldon MD [address] [address] Consulting Physician Cardiovascular Disease 07/26/23 documented as of this encounter
--- OUTSIDE RECORDS SUMMARY | 2024-09-04 00:31 | XMS_ITS | Clinical Summary ---
Author Organization [facility] Address [facility] [place] [address] Care Team Providers Care Head Control Clerk Name Role Phone Yun Arenas NP Primary Care Provider Johnny Michelle MD Unavailable Dori Davis MD Unavailable + [phone] Jamison Sheldon MD Unavailable Allergies No known active allergies Medications cholecalciferol [...] total) by mouth daily 03/11/20 21 Active LPXJZEZA-FCWLSZ-[id number] CORBIC ACID ORAL Take by mouth Active vit C,G-Oy-zwrrt-lutei n-zeaxan (PreserVision AREDS-2) 250-90-40-1 mg tablet,chewable Take [...] in your mouth on an chyna like [place] Hand Measurements: A fist or cupped hand [...] in your mouth on an chyna like [place] Hand Measurements: A fist or cupped hand [...] in your mouth on an chyna like [employer] Eater[employer] Hand Measurements: A fist or cupped hand [...] in your mouth on an chyna like [place] Hand Measurements: A fist or cupped hand [...] deferred. Assessment & Plan (04/05/2023 6:30 PM DERRICK HAND): Cuff is well healed Path reviewed Assessment & Plan (12/29/2022 10:02 AM CDT): Doing well Will continue the plan to repeat yearly Will await the bx results, but I anticipate it will be negative. 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 DOI 10/08/2012. [employer] remote home monitor Q3 mo and office [...] cardiology Assessment & Plan (06/05/2019 8:54 PM DERRICK HAND): Follow up with cardiology Hx of CABG [...] hydroxychloroquine 400 mg daily. -Continue seeing Dr. Mihcelle rheumatology Assessment & Plan (07/25/2022 11:50 AM CDT): HPI: Condition is stable A&P: Discussed/ordered labs, encouraged healthy, low carbohydrate lifestyle and at least 150min/week of exercise, continue on hydroxychloroquine 400 mg daily. Continue seeing Dr. Michelle rheumatology Assessment & Plan (03/06/2022 11:04 AM DERRICK HAND): Follow up with rheumatology Assessment & Plan (11/11/2020 4:36 PM CDT): Follow up with rheumatology Assessment & Plan (06/05/2019 8:53 PM DERRICK HAND): Follow up with rheumatology Mixed hyperlipidemia 01/25/2016 [...] seeing cardiology. Coronary artery disease invo lving eagle coronary artery of eagle heart 08/24/2013 Overview (07/13/2016): Coronary arteriosclerosis in eagle artery Assessment & Plan (08/07/2024 10:10 AM [...] cardiology Assessment & Plan (03/06/2022 11:09 AM DERRICK HAND): Follow up with cardiology Assessment & Plan (11/11/2020 4:37 PM CDT): Follow up with cardiology Assessment & Plan (06/05/2019 8:50 PM DERRICK HAND): Follow up with cardiology Hypertension, essential 04/27/2011 [...] 07/25/2022 Assessment & Plan (03/06/2022 11:13 AM DERRICK HAND): Continue follow up with endocrinology Screen for colon cancer 11/26/202107/09 Overview (11/26/2021): Added automatically from request for surgery [id number] Hematuria 11/11/2020 07/25/2022 Assessment & Plan (11/11/2020 4:46 PM CDT): Will recheck UA Arthralgia of right hip 10/16/202007/09 High risk medication use 02/15/2017 Sick sinus syndrome (CMS/HCC) 02/06/2017 07/25/2022 Chronic anticoagulation 02/06/201707/09 Osteoarthritis 11/15/2016 07/25/2022 Malignant neoplasm of endometrium (CMS/HCC) 01/13/2016 07/25/2022 Mixed hyperlipidemia 08/24/2013 022 Overview (07/15/2016): MIXED HYPERLIPIDEMIA Assessment & Plan (03/06/2022 11:11 AM DERRICK HAND): Continue Simvastatin 40mg QHS Assessment & Plan (11/11/2020 4:43 PM CDT): Continue simvastatin 40mg a day Assessment & Plan (06/05/2019 8:49 PM DERRICK HAND): Stable on current therapy Essential hypertension 08/24/201303/30 Overview (07/15/2016): BENIGN HYPERTENSION Assessment & Plan (03/06/2022 11:04 AM DERRICK HAND): Continue Olmesartan 40mg a day and Carvedilol 12.5mg one tablet twice a day Assessment & Plan (11/11/2020 4:35 PM CDT): Continue Olmesartan 40mg a day and Carvedilol 12.5mg twice a day Assessment & Plan (06/05/2019 8:49 PM DERRICK HAND): Continue current therapy Hyperlipidemia 04/27/2011 09/16/2021 Encounters Date Type Department Care Team Description 08/26/2024 8:00 AM CDT Ancillary Procedure [facility] Cardiology [address] [place] [address] [place] [phone] Cardiac pacemaker in situ; Paroxysmal atrial fibrillation (HCC); SSS (sick sinus syndrome) ([facility]) 08/26/2024 Telephone [facility] Cardiology [address] [place] [address] [place] [phone] Jamison Sheldon MD 08/22/2024 Telephone [facility] Cardiology [address] [place] [address] [place] [phone] Jamison Sheldon MD pacemaker question 08/20/2024 10:15 AM CDT Ancillary Procedure [facility] Cardiology [address] [place] [phone] Cardiac pacemaker in situ; Paroxysmal atrial fibrillation (HCC); SSS (sick sinus syndrome) ([facility]) 08/16/2024 Results Follow-Up [facility] Primary Care at [address] [phone] Yun Arenas NP Dexa Axial Skeleton Bone Density 1 or 2 Site 08/13/2024 12:57 PM CDT - 08/13/2024 11:59 PM CDT Hospital Encounter [facility] [address] [place] [address] Osteoporosis screening; Postmenopausal Discharge Disposition: Discharge to home or self care 08/07/2024 9:30 AM CDT Office Visit [facility] Primary Care at [address] [phone] Yun Arenas NP Annual physical exam (Primary Dx); Hypertension, essential; Mixed hyperlipidemia; Vitamin D deficiency; Vitamin B12 deficiency; Subclinical hypothyroidism; Cardiac pacemaker in situ; Primary osteoarthritis involving multiple joints; Paroxysmal atrial fibrillation (HCC); CREST (calcinosis, Raynaud's phenomenon, esophageal dysfunction, sclerodactyly, telangiectasia) (HCC); Coronary artery disease involving eagle coronary artery of eagle heart without angina pectoris; Psoriasis of scalp; Abrasion, leg w/o infection; Class 2 severe obesity due to excess calories with serious comorbidity and body mass index (BMI) of 37.0 to 37.9 in adult ([facility]) 08/02/2024 Results Follow-Up [facility] Primary Care at [place] [address] [facility] [address] [place] [phone] Yun Arenas NP Vitamin B12, Vitamin D 25 hydroxy, Lipid panel, Additional followed-up results: 6 08/01/2024 ACO Clinical Pharmacist [facility] Care Organization [address] [place] [phone] Angeline [facility] 07/31/2024 9:05 AM CDT Lab [address] [phone] Elevated vitamin B12 level; Vitamin D deficiency; Mixed hyperlipidemia; Subclinical hypothyroidism; Hypertension, essential 07/16/2024 8:15 AM CDT Ancillary Procedure [facility] Cardiology [address] [facility] [address] [place] [phone] Symptomatic bradycardia (Primary Dx); Paroxysmal atrial fibrillation (HCC); SSS (sick sinus syndrome) (HCC); Cardiac pacemaker in situ 07/09/2024 1:30 PM CDT Office Visit [facility] Cardiology [address] [place] [phone] Jamison Sheldon MD Coronary artery disease involving eagle coronary artery of eagle heart without angina pectoris (Primary Dx); Hypertension, essential; Paroxysmal atrial fibrillation (HCC); Cardiac pacemaker in situ; Mixed hyperlipidemia; Class 2 severe obesity due to excess calories with serious comorbidity and body mass index (BMI) of 36.0 to 36.9 in adult (HCC) 06/25/2024 11:35 AM CDT Lab [address] [phone] from Last 3 Months Immunizations Immunization Administration Dates Next Due COVID-19 mRNA ([employer]) 0.3 m L (30 mcg) vaccine (12 [...] 03/07/2015,04/10/2014 ZOSTER LIVE 01/06/2011 ZOSTER Recombinant 11/24/2023,09/25/2023 Surgical History Surgery Date Site/Laterality Comments OTHER SURGICAL HISTORY D&C OTHER SURGICAL HISTORY retinal tear, left: left eye surgery CORONARY ARTERY BYPASS GRAFT 04/10/2009 - 04/09/2010 Coronary Artery Bypass Graft OTHER SURGICAL HISTORY CAD: bypass surgery OTHER SURGICAL HISTORY Cancer, endometrial: EDGAR/BSO CARDIAC PACEMAKER PLACEMENT 04/10/2012 - 04/09/2013 Cardiac pacemaker CARDIAC PACEMAKER PLACEMENT Cardiac pacemaker CATARACT EXTRACTION, BILATERAL HYSTERECTOMY AGE 62 CATARACT EXTRACTION 03/13/08. 06/20/16 Medical History Medical History Date Comments Hx Other Medical retinal tear, l eft Hypertension Hypertension Hx Other Medical recurrent synco pe Adiposity Obesity Chronic coronary artery disease Coronary Artery Disease Hx Other Medical CAD History of malignant neoplas m of endometrium Cancer, endometrial; Outcome : adenocarcinoma Stage IA Hx Other Medical CREST syndrome Uterine cancer (HCC) AGE 62 Cataract L 2007 R 2017 Heart disease Family History Medical History Relation Name Comments Diabetes Father Patience Diabetes mellit us; Cause of : Diabetes mellitus Heart attack Maternal Grandfather Dause Myocard ial Infarction; Cause of : Myocardial Infarction Heart disease Maternal Grandfather Dause Heart disease Maternal Grandmother Vida Stroke Maternal Grandmother Vida Cancer Mother Michelle Solorio Other Mother Michelle Solorio cancer of bone; Cause of : cancer of bone Breast cancer Neg Hx no change 01/02 10/01 cmt Endometrial cancer Neg Hx Ovarian cancer Neg Hx Thyroid cancer Neg Hx Relation Name Status Comments Father Varnol (Age 83) Maternal Grandfather Dona (Age 65) Maternal Grandmother Vida Mother Michelle Solorio (Age 50) Social History Tobacco Use Types Packs/Day Years [...] on file Legal Sex Female 11:24 PM DERRICK HAND Gender Identity Female 06/26/2020 10:20 AM CDT Sexual Orientation Not on file Obstetrics History Para Term AB IAB SAB Ectopic Multiple Livin g Live Births 0 0 0 0 0 0 0 0 0 0 0 Last Filed Vital Signs Vital Sign Reading [...] 08/07/2024 9:09 AM CDT Plan of Treatment Health Maintenance Due Date Last Done Comments Covid-19 Vaccine ( season) 2024 07/10/2024, 12/08/2023, 07/14/2023, Additional history exists DTaP/Tdap/Td Vaccine (3 - Td or Tdap) 03/07/2025 03/07/2015, 04/10/2014 Breast Cancer Screening-Mammogram 05/10/2025 05/10/2024, 03/23/2023, 02/22/2022, Additional history exists Depression Screening 08/07/2025 08/07/2024, 01/31/2024, 01/04/2024, Additional history exists Fall Risk Assessment 08/07/2025 08/07/2024, 01/31/2024, 07/26/2023, Additional history exists Well Visit 65+ 08/07/2025 08/07/2024, 07/09, 10/19/2021, Additional history exists Osteoporosis Screening-Bone Density Scan 08/13/2026 08/13/2024, 09/29/2020, 01/26/2017, Additional history exists Colon Cancer Screening-Colonoscopy 01/25/2027 01/25/2022, 10/06/2015, 10/06/2015, Additional history exists Pneumococcal vaccine 65+ Completed 017, 01/20/2015, 01/20/2007 Colon Cancer Screening-CT Colonography Discontinued 01/25/2022, 10/06/2015, 10/06/2015, Additional history exists Colon Cancer Screening-DNA Stool Discontinued 01/25/2022, 10/06/2015, 10/06/2015, Additional history exists Colon Cancer Screening-FIT Discontinued 01/25, 10/06/2015, 10/06/2015, Additional history exists Colon Cancer Screening-Sigmoidoscopy Discontinued 01/25/2022, 10/06/2015, 10/06/2015, Additional history exists Hepatitis C Screening Completed 08/02/2022 Zoster Vaccine Completed 11/24/2023, 09/08, 01/06/2011 Influenza Vaccine Completed 01/05/2024, , 01/04/2023, Additional history exists Hepatitis B Screening Completed 01/22/2024 Medical Devices Implanted Type Area Dairy Clerk Device Identifier Shelf Expiration Date Model / Serial / Lot Pacemaker-2012 Implanted:04/2012 by Kristie Matos (Quantity not on file) Pacemaker Chest [employer] Will Medical SSS, Symptomatic Bradycardia ACCENT 2210 / [id number] / Procedures Procedure Name Priority Date/Time Associated [...] 1:52 PM CDT Coronary artery disease involving eagle coronary artery of eagle heart without angina pectoris Mixed hyperlipidemia FOLATE Routine 06/25/2024 11:57 AM CDT TRANSFERRIN Routine 06/25/2024 11:52 AM CDT VITAMIN B12 Routine 06/25/2024 11:52 AM CDT RETICULOCYTES Routine 06/25/2024 11:52 AM CDT FERRITIN Routine 06/25/2024 11:52 AM CDT IRON PROFILE W/ IBC Routine 06/25/2024 11:52 AM CDT SCREENING MAMMOGRAM BILATERAL W JAMEL Schedule Routine, Read Routine (OP Routine) 05/10/2024 8:42 AM DERRICK HAND Breast cancer screening by mammogram HEPATITIS C [...] Dx; SSS, PAF, Symptomatic Bradycardia. DOI 10/08/2012. [employer] remote home monitor . DDD Pacemaker Remote. Transmission attached. Battery status: 2.57 V, AVERY reached 08/25/2024. Stable lead impedances, pacing and sensing thresholds. Presenting rhythm: -VS (SR). AP-22%, SOCIAL MEDIA STRATEGIST-<1%. No AT/AF episodes noted. No Ventricular high rate episodes detected. Medications: ASA 81 mg, Coreg. See scanned report. Office pacemaker follow up: post pacemaker replacement. [place] remote after generator replacement. Elva Chavez, RN Jamison Sheldon MD CV [facility] Final Result * Dexa Axial Skeleton Bone Density 1 or 2 Site (08/13/2024 1:15 PM CDT) Anatomical Region Laterality Modality Body N/A Other 08/14/2024 1:32 PM CDT Narrative 08/14/2024 1:34 PM CDT EXAM DESCRIPTION: DEXA AXIAL SKELETON BONE DENSITY 1 OR MORE SITES REASON FOR STUDY: 73 y/o year old F with given history of: osteoporosis screening Screening. 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 MF: [id number] Report ID: [id number] Reading Location: [address] Note Greg Montague MD - 08/14/2024 EXAM DESCRIPTION: DEXA AXIAL SKELETON BONE DENSITY 1 OR MORE SITES REASON FOR STUDY: 73 y/o year old F with given history of:osteoporosis screening Screening. 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 MF: [email or web address] Report ID: [id number] Reading Location: [place] [address] Yun Arenas NP IM DXA PROCEDURES Final [...] 9:07 AM CDT 07/31/2024 9:31 AM CDT us Yun Arenas NP LAB BLOOD ORDERABLES Final R esult [facility] ([place]) [address] [facility] Department [place] [address] * Differential, auto (07/31/2024 9:07 AM CDT) Neutrophil abs 3.13 1.50 - 6.50 K/cumm Imm gran abs 0.02 0.00 - 0.10 K/cumm [facility] ([place]) Lymphocyte abs 1.41 0.80 - 3.30 K/cumm [facility] ([place]) Monocyte abs 0.56 0.20 - 0.80 K/cumm [facility] ([place]) Eosinophil abs 0.14 0.00 - 0.50 K/cumm [facility] ([place]) Basophil abs 0.05 0.00 - 0.10 K/cumm [facility] ([place]) Neutrophil pct 59.0 % [facility] ([place]) Comment: Interpretive Data Percent cell count reference ranges are not reported, since discordance with absolute values may lead to misinterpretation of CBC data. Current Interpretive Data was last revised on 2017. Imm gran pct 0.4 % [facility] ([place]) Comment: Interpretive Data Percent cell count reference ranges are not reported, since discordance with absolute values may lead to misinterpretation of CBC data. Current Interpretive Data was last revised on 2017. Lymphocyte pct 26.6 % [facility] ([place]) Comment: Interpretive Data Percent cell count reference ranges are not reported, since discordance with absolute values may lead to misinterpretation of CBC data. Current Interpretive Data was last revised on 2017. Monocyte pct 10.5 % [facility] ([place]) Comment: Interpretive Data Percent cell count reference [...] revised on 2017. Basophil pct 0.9 % [facility] ([place]) Comment: Interpretive Data Percent cell count reference ranges are not reported, since discordance with absolute values may lead to misinterpretation of CBC data. Current Interpretive Data was last revised on 2017. Blood 07/31/2024 9:07 AM CDT 07/31/2024 9:31 AM CDT [facility] LAB BLOOD ORDERABLES Final R esult Performing Organization Address City/[facility]/ZIP Co de Phone Number [facility] ([place]) [address] [facility] [place] [address] * (ABNORMAL) Thyroid Function [place] (07/31/2024 9:07 AM CDT) TSH 5.17(H) 0.30 - 4.20 mcIUnit/mL Blood 07/31/2024 9:07 AM CDT 07/31/2024 9:31 AM CDT [facility] LAB BLOOD ORDERABLES Final R esult Performing Organization Address City/[facility]/ZIP Co de Phone Number [facility] ([place]) [address] [facility] [place] [address] * (ABNORMAL) CBC with auto differential (07/31/2024 9:07 AM CDT) WBC 5.31 3.80 - 9.90 K/cumm Hgb 11.2(L) 11.9 - 15.5 g/dL [facility] ([place]) Hct 34.1(L) 35.6 - 45.5 % [facility] ([place]) Plt 188 150 - 400 K/cumm [facility] ([place]) MPV 9.4 9.1 - 12.3 fL [facility] ([place]) RBC 3.59(L) 3.90 - 5.20 M/cumm [facility] ([place]) MCV 95.0 81.3 - 96.4 fL [facility] ([place]) MCH 31.2 27.1 - 33.3 pg [facility] ([place]) MCHC 32.8 32.3 - 35.7 g/dL [facility] ([place]) RDW CV 12.9 11.1 - 14.9 % [facility] ([place]) RDW SD 44.5 35.7 - 48.1 fL [facility] NRBC abs 0.00 0.00 - 0.01 K/cumm [facility] ([place]) Blood 07/31/2024 9:07 AM CDT 07/31/2024 9:31 AM CDT [facility] LAB BLOOD ORDERABLES Final R esult Performing Organization Address City/[facility]/ZIP Co de Phone Number [facility] ([place]) [address] [facility] [place] [address] * Vitamin D 25 hydroxy (07/31/2024 9:07 AM CDT) Pathologist [facility] Vitamin D 25-OH 62 30 - 80 ng/mL Blood 07/31/2024 9:07 AM CDT 07/31/2024 9:31 AM CDT [facility] LAB BLOOD ORDERABLES Final R esult [facility] ([place]) [address] [facility] [place] [address] * T4, free (07/31/2024 9:07 AM CDT) Free T4 1.19 0.90 - 1.70 ng/dL Blood 07/31/2024 9:07 AM CDT 07/31/2024 9:31 AM CDT Narrative [facility] ([place]) - 07/31/2024 11:09 AM CDT This test was reflexed from a TSH result. [facility] BLOOD [facility] Final R esult [facility] ([place]) 1 [place] [address] * Vitamin B12 (07/31/2024 9:07 AM CDT) Vitamin B12 449 230 - 1,250 pg/mL Blood 07/31/2024 9:07 AM CDT 07/31/2024 9:31 AM CDT [facility] ORDER[facility] Final R esult Performing Organization Address City/[facility] Co de Phone Number [facility] ([place]) [address] [place] [address] * Lipid panel (07/31/2024 9:07 AM CDT) [...] on 2017. LDL, calculated 47 <=129 mg/dL [facility] ([place]) Comment: Interpretive Data Ages < or = 19 years Acceptable: <110 mg/dL Borderline high: 110-129 mg/dL High: >or= 130 mg/dL Ages > or = 20 years Optimal: <100 mg/dL Near optimal: 100-129 mg/dL Borderline high: 130-159 mg/dL High: >160 mg/dL Calculated using the Alfredo LDL-C estimating equation. This equation was implemented on 2023. Prior to this date LDL-C was estimated using the Friedewald equation. Literature References: 1. Expert Panel on Integrated Guidelines for Cardiovascular Health and Risk Reduction in Children and Adolescents. Pediatrics 2011;128:S213 2. NCEP Expert Panel. Circulation 2004;110:227 3. Alfredo Burroughs al. MICKEY Cardiol. 2020 August 08;5(5):540-548. doi: 10.1001/jamacardio.2020.0013 Current Interpretive Data was last revised on 2023. Non-HDL Cholesterol 61 mg/dL [facility] ([place]) Comment: Interpretive Data [...] Final R esult [facility] ([place]) [address] [facility] Department [place] [address] * (ABNORMAL) Comprehensive metabolic panel (07/31/2024 9:07 [...] 9:07 AM CDT 07/31/2024 9:31 AM CDT us Yun Arenas NP LAB BLOOD ORDERABLES Final R esult [facility] ([place]) [address] [facility] Department [place] [address] * DEVICE CHECK - REMOTE (07/16/2024 10:09 AM CDT) Anatomical Region Laterality Modality Other Narrative 07/17/2024 3:[address] Will Dual Pacemaker Dx; SSS, Symptomatic Bradycardia. DOI 10/08/2012. [place] remote home monitor Q3 mo and office pacer checks Q1 yr. Routine DDD Pacemaker Remote. Transmission attached. Battery status: 2.59 V, < 3 months remaining battery life to AVERY. Stable lead impedances, pacing and sensing thresholds. Presenting rhythm: /VS AP-21%, SOCIAL MEDIA STRATEGIST-< 1% 1 AT/AF episodes noted, longest episode was 8 seconds in duration, IEGM demonstrates AT/AF. AF Aristes < 1%. No Ventricular high rate episodes detected. Medications: ASA 81 mg, carvedilol 12.5 mg, olmesartan 40 mg See scanned report. Office pacemaker follow up: Pending generator change [place] remote f/u 08/20/24. Wiley Granados, RN us Jamison Sheldon MD CV [facility] Final Result * POCT lipid panel (07/09/2024 1:52 PM CDT) Pathologist [facility] Cholesterol, POC 112 mg/dL HDL, POC 63 mg/dL Triglycerides, POC 48 mg/dL LDL Cholesterol POC 39 mg/dL Chol/HDL Ratio, POC 0.6 Non-HDL Cholesterol, POC 49 mg/dL Cholesterol Total, POC 112 mg/dL Capillary blood 07/09/2024 1 :52 PM CDT Jamison Sheldon MD POINT OF CARE TEST ORDERA BLES Final Result * Folate (06/25/2024 11:57 AM CDT) [facility] Folic acid >20.0 >=5.0 ng/mL Comment:Slightly Hemolyzed S pecimen. Results may be affected. Blood 06/25/2024 11:5 7 AM CDT 06/25/2024 12:29 PM CDT Johnny Michelle MD LAB BLOOD ORDERABLES Final Resul t Performing Organization Address City/[facility] Co de Phone Number [facility] ([place]) [address] [facility] [place] [address] * Iron profile w/ IBC (06/25/2024 11:52 AM CDT) [facility] Iron 68 35 - 145 mcg/dL TIBC 292 250 - 400 mcg/dL [facility] ([place]) Transferrin saturation 23 20 - 50 % [facility] ([place]) Blood 06/25/2024 11:5 2 AM CDT 06/25/2024 12:01 PM CDT Johnny Michelle MD LAB BLOOD ORDERABLES Final Resul t [facility] 1 [facility] [place] [address] * Reticulocyte Count (06/25/2024 11:52 AM CDT) [facility] Retics, absolute 0.071 0.020 - 0.087 M/cumm Retics 1.9 0.4 - 2.9 % [facility] ([place]) Reticulocyte Hgb 34.4 30.5 - 38.0 pg [facility] ([place]) Blood 06/25/2024 11:5 2 AM CDT 06/25/2024 12:01 PM CDT Johnny Michelle MD LAB BLOOD ORDERABLES Final Resul t [facility] ([place]) 1 [place] [address] * Transferrin (06/25/2024 11:52 AM CDT) [facility] Transferrin 251 200 - 360 mg/dL Comment: Lipemia present. Results may be affected. Testing performed by: , [address] [place] [address], [id number] Blood 06/25/2024 11:5 2 AM CDT 06/25/2024 1:25 PM CDT Johnny Michelle MD LAB BLOOD ORDERABLES Final Resul t Performing Organization Address [facility] Co de Phone Number [facility] ([place]) [address] [facility] [place] [address] * Ferritin (06/25/2024 11:52 AM CDT) [facility] Ferritin 121 15 - 150 ng/mL Blood 06/25/2024 11:5 2 AM CDT 06/25/2024 12:01 PM CDT Johnny Michelle MD LAB BLOOD ORDERABLES Final Resul t Performing Organization Address City/[facility]/ZIP Co de Phone Number [facility] ([place]) [address] [facility] [place] [address] * Vitamin B12 (06/25/2024 11:52 AM CDT) Vitamin B12 595 230 - 1,250 pg/mL Blood 06/25/2024 11:5 2 AM CDT 06/25/2024 12:01 PM CDT Johnny Michelle MD LAB BLOOD ORDERABLES Final Resul t [facility] ([place]) [address] [facility] Department [place] [address] * Screening Mammogram Bilateral W Jamel (05/10/2024 8:42 AM DERRICK HAND) Anatomical Region Laterality Modality Breast Bilateral Mammography 05/10/2024 9:26 AM [facility] Impressions 05/10/2024 9:26 AM [facility] There is no mammographic evidence to suggest malignancy. The patient may continue screening mammography as per ACR guidelines. FINAL ASSESSMENT: BI-RADS Category 1: Negative. Electronically signed by: Keya Howell M.D. Narrative 05/10/2024 9:26 AM [facility] EXAMINATION: BILATERAL SCREENING MAMMOGRAM WITH TOMOGRAPHY HISTORY: [...] nodes seen in the axillae or elsewhere. Yun Arenas CLAIMS COORDINATOR IMG MAMMO PROCEDURES Final R esult * Hepatitis C antibody (08/02/2022 7:30 AM CDT) Hep C Ab Nonreactive Nonreactive [facility] ([facility]) Comment: Interpretive Data Nonreactive: Antibodies to HCV [...] last revised on 2019. Testing performed by: , [address] [place] [address], [place]., [address] Blood 08/02/2022 7:30 AM CDT 08/02/2022 2:36 PM CDT us Yun Arenas NP LAB MICROBIOLOGY - GENERAL O RDERABLES Edited Result - Final [facility] ([facility]) [facility] Department [place] [address] * COLONOSCOPY (01/25/2022 7:37 AM CDT) Anatomical Region Laterality Modality Other Narrative Procedure Note Andriy Frey MD - 01/25/2022 7:37 AM CDT [facility] Patient Name: Estrella Palencia Procedure Date: 01/25/2022 7:37 AM Date of : 1950 Admit Type: Outpatient Age: 71 Gender: Female Attending MD: Andriy Frey M.D. Room: [facility] ENDOSCOPY ROOM 2 Note Status: Finalized Patient [...] scope was passed under direct vision. TheColonoscope [id number] was introduced through the anus and advanced [...] 7:37 AM Procedure Code(s): --- Professional --- 57095, Colonoscopy, flexible; with biopsy, single or multiple Diagnosis Code(s): --- Professional --- D12.2, Benign neoplasm of ascending colon K64.9, Unspecified hemorrhoids Z86.010, Personal history of colonic polyps CPT copyright 2020 [employer]. All rights reserved. The codes documented in this report are preliminary and upon catechist reviewmay be revised to meet current compliance requirements. Recognized by the [employer] for promoting quality in endoscopy Andriy Frye MD ENDOSCOPY PROCEDURES Final Re sult from Last 3 Months or Most Recently Relevant to Health Maintenance Insurance [employer] MEDICARE PPO Advance Directives For more information, please contact: [phone] * Full Code (Latest Code Status on File) Date Activated Date Inactivated Comments 01/25/2022 7:38 AM 01/25/2022 2:38 PM Care Teams Head Control Clerk Relationship Specialty Start Date End Date Yun Arenas NP [address] [facility] [address] [place] [address] PCP - General Family Medicine 07/25/22 Johnny Michelle MD [address] [place] [address] Referring Physician Family Practice 07/25/22 Dori Davis MD [address] [facility] [address] [place] [address] Consulting Physician Obstetrics and Gynecology 07/26/23 Jamison Sheldon MD [facility] [address] [place] [address] Consulting Physician Cardiovascular Disease 07/26/23
[2024-09-04 09:33] LABS: Basophils Percent Auto 0.6 % (0.2-1.2); Eosinophils Absolute Auto 0.2 K/mm3 (0-0.3); Eosinophils Percent Auto 2.1 % (0-4.4); Hematocrit 37.7 % (37.0-47.0); Hemoglobin 12.2 g/dL (12.0-15.0); Immature Granulocyte Absolute 0.02 K/mm3 (0.00-0.031); Immature Granulocyte Percent A 0.3 % (0-0.5); Lymphocytes Absolute Auto 1.71 K/mm3 (0.9-3.2); Lymphocytes Percent Auto 23.7 % (18.3-44.2); Mean Corpuscular HGB Conc 32.4 g/dl (32-36); Mean Corpuscular Hemoglobin 31.6 pg (26-34); Mean Corpuscular Volume 97.7 fl (80-100); Mean Platelet Volume 9.4 fl (7.4-10.4); Monocytes Absolute Auto 0.7 K/mm3 (0.1-0.6); Monocytes Percent Auto 9.4 % (2.6-8.5); Neutrophils Absolute Auto 4.6 K/mm3 (1.3-6.7); Neutrophils Percent Auto 63.9 % (45.5-73.1); Platelet Count Result 193 k/mm3 (150-375); Red Blood Count 3.86 M/mm3 (4.2-5.4); Red Cell Distribution Width 12.3 % (11.5-14.5); White Blood Count 7.2 K/mm3 (4.5-10.0)
[2024-09-04 09:42] LABS: Anion Gap 5 mmol/L (4-12); Blood Urea Nitrogen 27 mg/dL (7-17); Calcium 9.4 mg/dL (8.4-10.2); Carbon Dioxide 28 mmol/L (22-30); Chloride 107 mmol/L (98-107); Estimated CRCL calculation 49 ml/min; Estimated Glomerular Filt Rate > 60; Glucose 97 mg/dL (65-110); Potassium 4.2 mmol/L (3.4-5.0); Sodium 140 mmol/L (137-145)
--- NOTE | 2024-09-04 11:01 | PM.IMHP ---
H&P: HPI History of Present Illness Date/Time: 09/04/24 11:01 Chief Complaint: Pacemaker at [facility] Narrative: This is a 73-year-old woman with a chronically implanted pacemaker. The device was implanted in 2012 for treatment of symptomatic bradycardia with sick sinus syndrome. In routine follow-up in our office the device has been found to be at [facility] and she is admitted today electively as an outpatient for generator change. She also has a history of coronary artery disease and in 2009 was referred for surgical revascularization. She has a NABIL graft to the LAD, radial artery graft to the OM and a saphenous vein graft to the posterior descending artery. She has done well without any significant ischemic problems since then. Review of Systems Constitutional: Constitutional: Reports no additional constitutional complaints Eyes: Eyes: Reports no additional eye complaints ENT: Reports system reviewed and no additional complaints, except as documented Cardiovascular: Cardiovascular: Reports no additional cardiovascular complaints Respiratory: Respiratory: Reports no additional respiratory complaints Gastrointestinal: Gastrointestinal: Reports no additional gastrointestinal complaints Genitourinary: Genitourinary: Reports no additional female genitourinary complaints Musculoskeletal: Musculoskeletal: Reports no additional musculoskeletal complaints Integumentary/Breasts: Skin/Breast: Reports system reviewed and no additional complaints, except as docu Neurologic: Reports system reviewed and no additional complaints, except as documented PMF Social History Social History Smoking status: Never smoker Second hand tobacco smoke exposure: No Alcohol intake: never Substance use: never Living arrangements: with family Spiritual care concerns: No Meds Home Medications and Allergies Home Medications ?Medication ?Instructions ?Recorded ?Confirmed ?Type aspirin 81 mg tablet,delayed 81 mg PO DAILY 09/03/24 09/04/24 History release (Adult Low Dose Aspirin) calcium 600 mg (as 1 tablet PO DAILY 09/03/24 09/03/24 History carbonate)-vitamin D3 20 mcg (800 unit) tablet carvedilol 12.5 mg tablet 12.5 mg PO Q12H 09/03/24 09/03/24 History cholecalciferol (vitamin D3) 50 2,000 unit PO DAILY 09/03/24 09/03/24 History mcg (2,000 unit) tablet collagen,hydrolysate 500 mg-biotin 1 cap PO DAILY 09/03/24 09/03/24 History 800 mcg-ascorbic acid 50 mg capsule (Collagen 1500 Plus C) hydroxychloroquine 200 mg tablet 400 mg PO DAILY 09/03/24 09/03/24 History olmesartan 40 mg tablet 40 mg PO DAILY 09/03/24 09/04/24 History simvastatin 40 mg tablet 40 mg PO QPM 09/03/24 09/03/24 History triamcinolone acetonide 0.1 % 1 applic topical BID 09/03/24 09/03/24 History topical cream vit C 250 mg-vit E 90 mg-zinc 40 1 tablet PO BID 09/03/24 09/03/24 History mg-copper 1 [id number] capsule (PreserVision AREDS-2) Allergies Allergy/AdvReac Type Severity Reaction Status Date / Time No Known Allergies Allergy Verified 09/04/24 08:37 Vital Signs Vital Signs - 24 hr 09/04/24 08:39 09/04/24 09:35 Temperature 36.2 C L Pulse Rate 74 Respiratory Rate 16 Blood Pressure 217/78 H 188/61 H Pulse Oximetry 99 Oxygen Delivery Room Air Exam Const: General: comfortable Other: Pleasant obese woman no apparent distress HENMT: Mouth: Yes moist mucous membranes Eyes: Sclera: sclerae normal Neck: Neck: supple and no JVD Resp: Effort & Inspection: normal respiratory effort Auscultation: clear to auscultation bilaterally Cardio: Rate: regular rate Other: Pacemaker pocket on the right chest wall unremarkable in appearance GI: GI Palp: Yes Soft to palpation Auscultation: normal bowel sounds Skin: General skin exam: normal color Neuro: Other: Alert and oriented x3 Extrem: General: normal to inspection H&P: Results Labs Labs: Short CBC 09/04/24 Range/Units 09:23 WBC 7.2 (4.5-10.0) K/mm3 Hgb 12.2 (12.0-15.0) g/dL Hct 37.7 (37.0-47.0) % Plt Count 193 (150-375) k/mm3 [facility] 09/04/24 09:23 Sodium 140 Potassium 4.2 Chloride 107 Carbon Dioxide 28 BUN 27 H Creatinine 0.87 Glucose 97 Calcium 9.4 Assessment and Plan Assessment and plan (1) Coronary artery disease: Code(s): I25.10 - Atherosclerotic heart disease of [place] coronary artery without angina pectoris Status: Acute Plan 73-year-old woman with coronary artery disease, previous surgical revascularization also with sick sinus syndrome and a chronically implanted dual-chamber pacemaker. She is admitted today electively for pacemaker generator change. Greg Mortensen MD [facility]
--- NOTE | 2024-09-04 11:06 | P.SEDATION_ITS ---
Moderate Sedation Note-Pt Data Patient Data Diagnosis: Pacemaker at [facility] Present Complaint: No complaint Procedure to be performed/Plan: Pacemaker generator change Allergies Allergy/AdvReac Type Severity Reaction Status Date / Time No Known Allergies Allergy Verified 09/04/24 08:37 Home Medications ?Medication ?Instructions ?Recorded ?Confirmed ?Type aspirin 81 mg tablet,delayed 81 mg PO DAILY 09/03/24 09/04/24 History release (Adult Low Dose Aspirin) calcium 600 mg (as 1 tablet PO DAILY 09/03/24 09/03/24 History carbonate)-vitamin D3 20 mcg (800 unit) tablet carvedilol 12.5 mg tablet 12.5 mg PO Q12H 09/03/24 09/03/24 History cholecalciferol (vitamin D3) 50 2,000 unit PO DAILY 09/03/24 09/03/24 History mcg (2,000 unit) tablet collagen,hydrolysate 500 mg-biotin 1 cap PO DAILY 09/03/24 09/03/24 History 800 mcg-ascorbic acid 50 mg capsule (Collagen 1500 Plus C) hydroxychloroquine 200 mg tablet 400 mg PO DAILY 09/03/24 09/03/24 History olmesartan 40 mg tablet 40 mg PO DAILY 09/03/24 09/04/24 History simvastatin 40 mg tablet 40 mg PO QPM 09/03/24 09/03/24 History triamcinolone acetonide 0.1 % 1 applic topical BID 09/03/24 09/03/24 History topical cream vit C 250 mg-vit E 90 mg-zinc 40 1 tablet PO BID 09/03/24 09/03/24 History mg-copper 1 [id number] capsule (PreserVision AREDS-2) Sedation/Anesthesia: No previous sedation/anesthesia problems (including family history). [facility] Social History Social History Smoking status: Never smoker Second hand tobacco smoke exposure: No Alcohol intake: never Substance use: never Living arrangements: with family Spiritual care concerns: No Mod Sed Physical Exam Physical Exam Pre Procedural Exam: Normal: Neck, Throat, Airway, Lungs, Heart Size, Heart Rate, Heart Rhythm, Neuro Exam and Extremities and Variation: Appearance (Pleasant obese white female) Hours since solid foods: 12 Hours since liquid intake: 12 Mallampati Classification: class III Internal Medicine - PN: Obj Da Vital Signs Vital Signs: Vital Signs - 24 hr 09/04/24 08:39 09/04/24 09:35 Temperature 36.2 C L Pulse Rate 74 Respiratory Rate 16 Blood Pressure 217/78 H 188/61 H Pulse Oximetry 99 Oxygen Delivery Room Air Labs 09/04/24 09:23 09/04/24 09:23 Labs: Laboratory Results - last 24 hr 09/04/24 09:23 WBC 7.2 RBC 3.86 L Hgb 12.2 Hct 37.7 MCV 97.7 MCH 31.6 MCHC 32.4 RDW 12.3 Plt Count 193 MPV 9.4 Immature Gran % (Auto) 0.3 Neut % (Auto) 63.9 Lymph % (Auto) 23.7 [place] % (Auto) 9.4 H Eos % (Auto) 2.1 Baso % (Auto) 0.6 Lymph # (Auto) 1.71 [place] # (Auto) 0.7 H Eos # (Auto) 0.2 Baso # (Auto) 0.0 Abs Immat Gran (auto) 0.02 Absolute Neuts (auto) 4.6 Absolute Nucleated RBC 0.000 Nucleated RBC % 0.0 Sodium 140 Potassium 4.2 Chloride 107 Carbon Dioxide 28 Anion Gap 5 BUN 27 H Creatinine 0.87 Estim Creat Clear Calc 49 Estimated GFR > 60 Glucose 97 Calcium 9.4 ASA Classification/Sedation ASA Classification/Sedation ASA Class: II Emergent: No Risks: Risks, benefits and alternatives explained and patient/family accepted plan for sedation. Patient re-evaluated immediately prior to sedation.
--- NOTE | 2024-09-04 12:16 | WPDCARDPROC ---
Cardiac Cath Procedure Note Date of procedure:: 09/04/24 Performing physician:: Greg Mortensen MD Indication:: Permanent pacemaker at [facility] Brief clinical history:: This is a 73-year-old lady who has coronary disease with previous surgical revascularization and also has a chronically implanted pacemaker for treatment of sick sinus syndrome device which is been found to be at [facility] and she is admitted today for elective generator change. Procedure Procedure performed:: Pacemaker generator change. Sedation/Medication given:: Fentanyl 75 mg Versed 2 mg Case start time 11:15 a.m. Case end time 12:05 p.m. Sedation provided by Conchita Kevin RN, trained observer Access site:: Chronic right anterior chest wall pocket Estimated blood loss:: 20 cc Procedure note:: Patient was brought to the cardiac catheterization lab in the postabsorptive state where the right anterior chest wall at the site of the previous chronically implanted device was prepped and draped in a sterile fashion. 30 cc of lidocaine was infiltrated above the pocket. The PlasmaBlade was then used to make an incision in the skin and used to dissect the subcutaneous fat and provide electrocautery. This was an extraordinarily deep pocket and 2 or 3 small arteries were encountered in the fat which had to be clipped and cauterized. Following this the fibrous capsule was finally encountered and opened using the plasma blade and Metzenbaum scissors. The pacemaker generator in the attached leads were then removed from the pocket and were visually intact and are unremarkable in appearance. The leads were disconnected from the depleted generator using the torque wrench. The same torque wrench was used to connect the new generator to the leads and the pocket was then infiltrated and rinsed with antibiotic saline. After this the pacemaker the leads were placed back into the chronic pocket this was then closed in layers using 3-0 Vicryl in an interrupted fashion for the subcutaneous tissue and 4-0 Vicryl in a running subcuticular fashion for the skin. This was dressed with an Aquacel dressing she was taken to the holding area in stable condition. Postop antibiotics were ordered. Findings:: The new the new pacemaker generator is an [employer] MRI model 2272. Serial number [id number]. The device is programmed in the DDD mode lower rate limit 60 upper rate limit 120 av delay 250 milliseconds. The chronically implanted atrial lead is a [employer] Opti sense MRI 1999/46cm.. Serial number [id number]. The P-waves are sensed at 2.4 mV threshold 0.625 volts at 0.4 milliseconds impedance 440 Ohms. Chronically implanted ventricular lead is a [employer] bipolar lead model Tendril STS 2088TC/52cm. The serial number [id number]. The R-waves are sensed at greater than 12 mV threshold 1.0 volt 1.0 milliseconds impedance 680 Ohms. Conclusion:: 1. Successful uncomplicated explantation of depleted pulse generator. Explantation was somewhat more challenging because of very deep pocket having to dissect through grow a large amount of subcutaneous fat 2. Successful uncomplicated implantation of new permanent [employer] dual-chamber pulse generator for ongoing treatment of sick sinus syndrome in this 73-year-old woman Greg Mortensen MD [facility]
== END 2024-09-04 13:46 | disposition home or self-care (01) ==
PROVIDERS: Visit Provider Specialist
PROC: 0JPT0PZ Removal of Cardiac Rhythm Related Device from Trunk Subcutaneous Tissue and Fascia, Open Approach (ICD-10-PCS; CPT 33228; principal; 2024-09-04 10:00)
DX: Z45.010 Encounter for checking and testing of cardiac pacemaker pulse generator [battery] (principal); I25.10 Atherosclerotic heart disease of native coronary artery without angina pectoris; Z95.1 Presence of aortocoronary bypass graft
CPT/HCPCS: 33228; 36415; 80048; 85025; C1785; J0690; J2003; J2250; J3010; J7040